=== PATIENT | female | born 1990 | race Caucasian/White ===

== ENCOUNTER 2016-11-23 15:22 | Emergency (ER) | payer OTHER ==
[~2016-11-23] VITALS: Ht 162.6 cm; Wt 77.5 kg
[~2016-11-23 15:22] MED LIST: ACET500C5 PO; BACTDS PO; CEPH-443 PO; CHLO4TAB PO; IBUP-1542 PO; NPH10OT RIGHT EAR
[2016-11-23 16:24] VITALS: Ht 162.6 cm; Wt 77.5 kg
[2016-11-23] MEDS ORDERED: HYDROCODONE/APAP (5/325) TAB PO ONE (19:00)
--- NOTE | 2016-11-23 20:45 | ERD ---
ER Documentation Chief Complaint Date/Time DATE: 11/23/16 TIME: 20:40 Chief Complaint ANDRES BILAT EAR PAIN HPI Patient complains of about 3 months of headaches. The headache is in the right occipital area in the frontal area. 2 months ago she has been seen for similar situation and was told that she was hyperventilating and there was due to stress. Her ears feel like they are underwater or full of air. Saw her a few weeks ago and gave her medication which has not helped. She denies weakness. She says the symptoms started after she came back from [place] approximately 2 months ago. She is 3 months she takes Tylenol as needed no allergies. Been seen here a couple times for similar symptoms the past few months. ROS All systems reviewed and are negative except as per history of present illness. Medications Home Meds Active Scripts Chlorpheniramine Maleate* (Chlor-Trimeton*) 4 Mg Tablet, 4 MG PO Q6, #6 TAB NOT TO EXCEED 24 MG /24 HRS Prov:ALLI DUMONT DO 11/14/16 Cephalexin* (Keflex*) 500 Mg Capsule, 500 MG PO QID for 7 Days, CAP Prov:GURDEEP CANALESC 11/04/16 Cephalexin* (Keflex*) 500 Mg Capsule, 500 MG PO QID for 7 Days, CAP Prov:BAYRON CORTES-C 10/08/16 Acetaminophen* (Tylophen*) 500 Mg Capsule, 2 CAP PO Q6H Y for PAIN AND OR ELEVATED TEMP, #20 CAP Prov:JOHANNA PRICE-C 09/30/16 Neomycin/Polymyxin/Hydrocort* (Cortisporin* Otic) 10 Ml Susp, 4 DROP RIGHT EAR QID for 7 Days, EA Prov:HEMA SERNAC 07/04/16 Ibuprofen* (Motrin*) 600 Mg Tab, 600 MG PO Q6H Y for PAIN AND OR ELEVATED TEMP, #30 TAB Prov:JONI MENDOZA NP 03/15/16 Cephalexin* (Keflex*) 500 Mg Capsule, 500 MG PO QID for 10 Days, CAP Prov:JONI MENDOZA NP 03/15/16 Sulfamethoxazole-Trimethoprim* (Bactrim* DS) 800-160 Mg Tab, 1 TAB PO BID for 10 Days, TAB Prov:JONI MENDOZA GUILLAUME TAric REMY 03/15/16 Allergies Allergies: Coded Allergies: No Known Allergy (Unverified , 03/15/16) PMhx/Soc History of Surgery: No Anesthesia Reaction: No Hx Neurological Disorder: No Hx Respiratory Disorders: No Hx Cardiac Disorders: No Hx Psychiatric Problems: No Hx Miscellaneous Medical Probl: No Hx Alcohol Use: No Hx Substance Use: No Hx Tobacco Use: No Physical Exam Vitals Vital Signs Date Time Temp Pulse Resp B/P Pulse Ox O2 Delivery O2 Flow Rate FiO2 11/23/16 16:24 99.5 94 18 119/72 100 Physical Exam Const: [Alert oriented 4, well-nourished well-developed nontoxic- appearing no apparent distress, interacts appropriately] Head: [Normocephalic/atraumatic, no scalp lesions] Eyes: [Normal Conjunctiva, PERRLA, EOMI no conjunctival injection no conjunctival discharge] ENT: [Normal External Ears, Nose and Mouth, no tonsillar exudates no tonsillar erythema no tonsillar edema oropharynx no erythema. bilateral ear canals are patent, bilateral tympanic membranes nonerythematous.] Neck: [Full range of motion. No meningismus. No cervical lymphadenopathy] Resp: [Clear to auscultation bilaterally, no wheezes rhonchi or rales, breathing normally, no tachypnea no nasal flaring no grunting no accessory muscle use no retractions] Cardio: [Regular rate and rhythm, no murmurs] Abd: [Soft, non tender, non distended. Normal bowel sounds, no rebound rigidity or guarding. Normoactive bowel sounds no flank tenderness, negative McBurney's negative Holland sign.] Skin: [No petechiae or rashes, no hives no urticaria no abscess no laceration no new warmth] Back: [No midline or flank tenderness, full range of motion without pain ] Ext: [No cyanosis, clubbing or edema] Neuro: M/S: Alert and oriented 4. Face: EOMI, face and pharynx with normal sensation and function Motor: Normal strength throughout, muscle strength is 5 out of 5 bilateral upper extremity and bilateral lower extremity Sensation: Normal sensation throughout Speech: Normal Cerebel: Normal coordination Normal gait DTR: 2+ and symmetric upper/lower extremities Psych: She appears very anxious she is crying. Results 24 hrs Current Medications Medications (Trade) Dose Ordered Sig/Prabhjot Route PRN Reason Start Time Stop Time Status Last Admin Dose Admin Acetaminophen/ Hydrocodone Bitart (Cypress (5/325)) 1 tab ONCE ONCE PO 11/23/16 19:00 11/23/16 19:01 DC 11/23/16 18:58 Procedures/MDM We gave her 1 dose of Cypress for her headache. I ordered a CAT scan of the head however patient do not want to the CAT scan because she was worried about the radiation which I think is fine. She has an appointment to see her doctor tomorrow and they can request an MRI at that point. This is most likely panic attacks and anxiety disorder she seems very anxious and stressed today and she has headache and unusual symptoms of the ear. She is very worried about a stroke because her friends told her she may have a stroke however she has no acute symptoms of stroke she has no weakness she has no symptoms of TIA. Also West Nile virus was considered however there is would be no intervention at this point his vital signs are stable and she does not have any meningismus or signs of encephalitis or meningitis. She has no neurological deficits I feel she is stable for discharge. I recommend relaxation therapy and she will see her primary doctor tomorrow who can do further evaluations and/or MRI of the head if needed. Differential includes intracranial hemorrhage intracranial mass or less likely CVA or stroke or meningitis or encephalitis and more likely stress headache. Also considered migraine headache cardiovascular headache or cluster headache or tension headache. ED precautions discussed Departure Diagnosis: Primary Impression: Headache Headache type: tension-type Headache chronicity pattern: acute headache Intractability: not intractable Qualified Code: G44.209 - Acute non intractable tension-type headache Additional Impression: Anxiety Condition: Stable Patient Instructions: Your Body's Response to Anxiety, Self-Care for Headaches , Anxiety Reaction ALLI DUMONT DO Nov 23, 2016 20:44
[2016-11-23 21:00] VITALS: BP 122/69; PULSE 77; RESP 18; TEMP 99.5
[2016-11-24] MEDS ORDERED: NITR-58 PO (11:51)
== END 2016-11-23 21:00 | disposition home or self-care (01) ==
LOC: FTE 15:22
DX: G44.209 Tension-type headache, unspecified, not intractable (principal); F41.9 Anxiety disorder, unspecified
CPT/HCPCS: Z7502; Z7610; 99283

== ENCOUNTER 2016-11-24 10:02 | Emergency (ER) | payer OTHER ==
[~2016-11-24] VITALS: Ht 162.6 cm; Wt 77.0 kg
[2016-11-24 10:15] VITALS: Ht 162.6 cm; Wt 77.0 kg
--- NOTE | 2016-11-24 11:32 | RADRPT ---
PROCEDURE: CT Brain without contrast. CLINICAL INDICATION: Headaches TECHNIQUE: A CT of the brain was performed on a multidetector CT scanner utilizing axial sections from the skull base through the vertex without contrast. Images were reviewed on a high-resolution enosiX workstation. Exam CTDI = 44.88 mGy and the DLP = 630.20 mGy-cm. One or more of the following dose reduction techniques were used: Automated exposure control Adjustment of the mA and/or kV according to patient size. Use of iterative reconstruction technique. COMPARISON: None available FINDINGS: There is no evidence of intracranial hemorrhage, mass effect or midline shift. No abnormal intra-ax ial or extra-axial fluid collections are seen. The density of the brain is normal and the miller/whit e matter differentiation is well preserved. The osseous structures and visualized paranasal sinuse s are unremarkable. IMPRESSION: 1. No intracranial hemorrhage, mass effect or midline shift. RPTAT: BB .Payam Walton MD, MD Date Time Electronically viewed and signed by .Payam Walton MD, on 11/24/2016 11:32 .O/
[2016-11-24 11:33] LABS: BASOPHILS % 0.3 % (0.0-2.0); EOSINOPHILS % 0.4 % (0.0-7.0); HEMATOCRIT 39.6 % (37.0-47.0); HEMOGLOBIN 13.4 g/dl (12.0-16.0); LYMPHOCYTES % 19.1 % (15.0-51.0); MEAN CORPUSCULAR HEMOGLOBIN 30.1 pg (29.0-33.0); MEAN CORPUSCULAR VOLUME 88.7 fl (82.0-101.0); MEAN PLATELET VOLUME 8.4 fl (7.4-10.4); MONOCYTE # 0.5 10^3/ul (0.3-0.9); MONOCYTES % 4.4 % (0.0-11.0); NEUTROPHIL # 7.9 10^3/ul (1.6-7.5); NEUTROPHILS % 75.8 % (39.0-77.0); PLATELET COUNT 224 10^3/UL (140-440); RED BLOOD COUNT 4.46 10^6/ul (4.20-5.40); RED CELL DISTRIBUTION WIDTH 13.6 % (11.5-14.5); UNCORRECTED WBC 10.5 10^3/ul (4.8-10.8); WHITE BLOOD COUNT 10.5 10^3/ul (4.8-10.8)
[2016-11-24 11:34] LABS: ALBUMIN 4.1 g/dl (3.3-4.9); CONDITION 1
[2016-11-24 11:35] LABS: POTASSIUM 4.1 mmol/L (3.5-5.1)
[2016-11-24 11:37] LABS: ADD UMIC YES; URINE BILIRUBIN (Dip) NEGATIVE (NEGATIVE); URINE BLOOD (Dip) TRACE (NEGATIVE); URINE COLOR LT. YELLOW (YELLOW); URINE GLUCOSE (Dip) NEGATIVE (NEGATIVE); URINE KETONES (Dip) NEGATIVE (NEGATIVE); URINE LEUKOCYTE ESTERASE (Dip) 3+ (NEGATIVE); URINE NITRITE (Dip) NEGATIVE (NEGATIVE); URINE TOTAL PROTEIN (Dip) NEGATIVE (NEGATIVE); URINE UROBILINOGEN (Dip) 0.2 E.U./dL (0.1-1.0)
[2016-11-24 11:37] LABS: ALBUMIN/GLOBULIN RATIO 1.24; BILIRUBIN,INDIRECT 0.2 mg/dl (0-1.1); BILIRUBIN,TOTAL 0.2 mg/dl (0.2-1.3); CREATININE 0.46 mg/dl (0.44-1.00); TOTAL PROTEIN 7.4 g/dl (6.1-8.1)
[2016-11-24 11:38] LABS: CALCIUM 9.7 mg/dl (8.4-10.2)
--- NOTE | 2016-11-24 11:45 | RADRPT ---
PROCEDURE: US OB. CLINICAL INDICATION: Size and dates , headache TECHNIQUE: Multiple sonographic images of the pelvis and gravid uterus were obtained. The images were reviewed on a PACS workstation. COMPARISON: 10/07/2016 FINDINGS: The cervix is closed with a length of 4.2 cm. There is a single viable intrauterine gestation. Cardiac activity is present with 156 beats per min consuelo. There is a variable presentation. The placenta is anterior. There is no evidence for an abruption or placenta previa. Measurements were made in order to determine age. The results are as follows: BPD =2.6 cm HC =9.2 cm AC =7.8 cm FL =1.4 cm Estimated gestational age of approximately 14 weeks and 2 days based on ultrasound measurements. Clinical age: 14 weeks and 1 day. The estimated date of delivery is 05/23/17, based on ultrasound measurements. The EFW = 91 g, 34.6%, based on LMP age. RPTAT: AA IMPRESSION: Single viable intrauterine gestation of approximately 14 weeks and 2 days based on ultrasound measu rements. .Jersey Roberts MD, MD Date Time Electronically viewed and signed by .Jersey Roberts MD, MD on 11/24/2016 11:45 .S/
[2016-11-24 11:46] LABS: BACTERIA,URINE FEW; SQUAMOUS EPITHELIAL CELL,UR MODERATE; URINE RBCS 0-2 /HPF (0)
[2016-11-24] MEDS ORDERED: NITR-58 PO (11:51)
--- NOTE | 2016-11-24 12:41 | ERD ---
ER Documentation Chief Complaint Date/Time DATE: 11/24/16 TIME: 12:36 Chief Complaint ANDRES X 2 months, pt was here last night for same complaint, 3 months HPI 26-year-old female is 0, 14 weeks comes in with a headache for the past 2 months. She comes back to the emergency room due to headache, she describes as a pressure type sensation and started after she returned from [place] on a flight. She has been told that he may have been a eustachian tube dysfunction, has been taking Benadryl as well as other allergy medicine without any symptomatic relief. She also has tried taking Tylenol. Headache is described as a pressure type sensation that goes from her neck to the occiput of the head, intermittent, and she also reports associated numbness to both of her hands. She was told yesterday that we may do a CT head if she is worried, she states that she is worried about having a brain tumor or bleeding and is requesting a CT scan. She was actually told to follow-up with her primary care doctor today to get an MRI however she did not follow-up. She denies any fevers , chills or neck stiffness. Patient denies pelvic pain or vaginal bleeding. ROS All systems reviewed and are negative except as per history of present illness. Medications Home Meds Active Scripts Nitrofurantoin Monohyd Macrocr* (Macrobid*) 100 Mg Capsr, 100 MG PO BID for 7 Days, CAP Prov:TARAH GRUBBSC 11/24/16 Chlorpheniramine Maleate* (Chlor-Trimeton*) 4 Mg Tablet, 4 MG PO Q6, #6 TAB NOT TO EXCEED 24 MG /24 HRS Prov:ALLI DUMONT DO 11/14/16 Cephalexin* (Keflex*) 500 Mg Capsule, 500 MG PO QID for 7 Days, CAP Prov:GURDEEP CANALESC 11/04/16 Cephalexin* (Keflex*) 500 Mg Capsule, 500 MG PO QID for 7 Days, CAP Prov:BAYRON CORTES-C 10/08/16 Acetaminophen* (Tylophen*) 500 Mg Capsule, 2 CAP PO Q6H Y for PAIN AND OR ELEVATED TEMP, #20 CAP Prov:JOHANNA PRICEC 09/30/16 Neomycin/Polymyxin/Hydrocort* (Cortisporin* Otic) 10 Ml Susp, 4 DROP RIGHT EAR QID for 7 Days, EA Prov:HEMA SERNA PA-C 07/04/16 Ibuprofen* (Motrin*) 600 Mg Tab, 600 MG PO Q6H Y for PAIN AND OR ELEVATED TEMP, #30 TAB Prov:JONI MENDOZA COMPUTER PERIPHERAL EQUIPMENT OPERATOR 03/15/16 Cephalexin* (Keflex*) 500 Mg Capsule, 500 MG PO QID for 10 Days, CAP Prov:JONI MENDOZA COMPUTER PERIPHERAL EQUIPMENT OPERATOR 03/15/16 Sulfamethoxazole-Trimethoprim* (Bactrim* DS) 800-160 Mg Tab, 1 TAB PO BID for 10 Days, TAB Prov:JONI MENDOZA COMPUTER PERIPHERAL EQUIPMENT OPERATOR 03/15/16 Allergies Allergies: Coded Allergies: No Known Allergy (Unverified , 11/24/16) PMhx/Soc Medical and Surgical Hx: pt denies Medical Hx, pt denies Surgical Hx History of Surgery: No Anesthesia Reaction: No Hx Neurological Disorder: No Hx Respiratory Disorders: No Hx Cardiac Disorders: No Hx Psychiatric Problems: No Hx Miscellaneous Medical Probl: No Hx Alcohol Use: No Hx Substance Use: No Hx Tobacco Use: No Smoking Status: Never smoker Physical Exam Vitals Vital Signs Date Time Temp Pulse Resp B/P Pulse Ox O2 Delivery O2 Flow Rate FiO2 11/24/16 10:15 98.3 104 18 120/67 97 Physical Exam General: Well-developed, well-nourished. The patient appears in no acute distress. HEENT: Head is normocephalic, atraumatic. No scleral icterus. Pupils are equal , round, and reactive. Oral mucous membranes are moist. No pharyngeal erythema. Neck: Supple. Nontender. Lungs: Clear to auscultation. Normal air movement. Heart: Regular rate and rhythm. S1 and S2 are normal. No murmurs, gallops, or rubs. Abdomen: Soft, nontender, nondistended. Bowel sounds are normoactive. Extremities: No clubbing or cyanosis. Normal pulses. Moving extremities x 4. No weakness. Neuro: M/S: Alert and oriented Face: EOMI, CN II-XII grossly intact Motor: Normal strength throughout Sensation: Normal sensation throughout Speech: Normal Cerebel: Normal coordination Normal gait Normal finger to nose DTR: 2+ and symmetric upper/lower extremities Skin: Normal turgor. No rash or lesions. Result Diagram: 11/24/16 1115 11/24/16 1115 Results 24 hrs Laboratory Tests Test 11/24/16 11:15 11/24/16 11:20 Alanine Aminotransferase (ALT/SGPT) 23IU/L Albumin 4.1g/dl Albumin/Globulin Ratio 1.24 Alkaline Phosphatase 62IU/L Anion Gap 15 Aspartate Amino Transf (AST/SGOT) 14IU/L Basophils # 0.010^3/ul Basophils % 0.3% Blood Urea Nitrogen 8mg/dl Calcium Level 9.7mg/dl Carbon Dioxide Level 24mmol/L Chloride Level 102mmol/L Creatinine 0.46mg/dl Direct Bilirubin 0.00mg/dl Eosinophils # 0.010^3/ul Eosinophils % 0.4% Globulin 3.30g/dl Glucose Level 90mg/dl Hematocrit 39.6% Hemoglobin 13.4g/dl Indirect Bilirubin 0.2mg/dl Lymphocytes # 2.010^3/ul Lymphocytes % 19.1% Mean Corpuscular Hemoglobin 30.1pg Mean Corpuscular Hemoglobin Concent 34.0g/dl Mean Corpuscular Volume 88.7fl Mean Platelet Volume 8.4fl Monocytes # 0.510^3/ul Monocytes % 4.4% Neutrophils # 7.910^3/ul Neutrophils % 75.8% Nucleated Red Blood Cells # 0.010^3/ul Nucleated Red Blood Cells % 0.0/100WBC Platelet Count 67322^3/UL Potassium Level 4.1mmol/L Red Blood Count 4.4610^6/ul Red Cell Distribution Width 13.6% Sodium Level 137mmol/L Total Bilirubin 0.2mg/dl Total Protein 7.4g/dl White Blood Count 10.510^3/ul Urine Bacteria FEW Urine Bilirubin NEGATIVE Urine Clarity CLEAR Urine Color LT. YELLOW Urine Glucose NEGATIVE% Urine Hemoglobin TRACE Urine Ketones NEGATIVE Urine Leukocyte Esterase 3+ Urine Microscopic RBC 0-2/HPF Urine Microscopic WBC 5-10/HPF Urine Nitrite NEGATIVE Urine Specific [place] 1.015 Urine Squamous Epithelial Cells MODERATE Urine Total Protein NEGATIVE Urine Urobilinogen 0.2 E.U./dL Urine pH 6.5 PROCEDURE: US OB. CLINICAL INDICATION: Size and dates , headache TECHNIQUE: Multiple sonographic images of the pelvis and gravid uterus were obtained. The images were reviewed on a PACS workstation. COMPARISON: 10/07/2016 FINDINGS: The cervix is closed with a length of 4.2 cm. There is a single viable intrauterine gestation. Cardiac activity is present with 156 beats per minute. There is a variable presentation. The placenta is anterior. There is no evidence for an abruption or placenta previa. Measurements were made in order to determine age. The results are as follows: BPD = 2.6 cm HC = 9.2 cm AC = 7.8 cm FL = 1.4 cm Estimated gestational age of approximately 14 weeks and 2 days based on ultrasound measurements. Clinical age: 14 weeks and 1 day. The estimated date of delivery is 05/23/17, based on ultrasound measurements. The EFW = 91 g, 34.6%, based on LMP age. RPTAT: AA IMPRESSION: Single viable intrauterine gestation of approximately 14 weeks and 2 days based on ultrasound measurements. .Jersey Roberts MD, MD Date Time Electronically viewed and signed by .Jersey Roberts MD, MD on 11/24/2016 11: 45 .S/ PROCEDURE: CT Brain without contrast. CLINICAL INDICATION: Headaches TECHNIQUE: A CT of the brain was performed on a multidetector CT scanner utilizing axial sections from the skull base through the vertex without contrast. Images were reviewed on a high-resolution PACS workstation. Exam CTDI = 44.88 mGy and the DLP = 630.20 mGy-cm. One or more of the following dose reduction techniques were used: Automated exposure control Adjustment of the mA and/or kV according to patient size. Use of iterative reconstruction technique. COMPARISON: None available FINDINGS: There is no evidence of intracranial hemorrhage, mass effect or midline shift. No abnormal intra-axial or extra-axial fluid collections are seen. The density of the brain is normal and the miller/white matter differentiation is well preserved. The osseous structures and visualized paranasal sinuses are unremarkable. IMPRESSION: 1. No intracranial hemorrhage, mass effect or midline shift. RPTAT: BB .Payam Walton MD, MD Date Time Electronically viewed and signed by .Payam Walton MD, on 11/24/2016 11:32 Procedures/MDM ED course: I reviewed patient's previous EMR, including yesterday's visit. She actually was offered a CT scan, which was ordered however it she decided to opt out. She states that she was not able to follow-up with her primary care doctor, she appears extremely anxious and was concerned about having a mass or bleed, did explain the radiation risk even though we would be shielding her in the emergency room, she currently is demanding a CT scan of the head. She understands the risks and benefits of this examination. MDM: 26-year-old female who is comes in with headache, likely tension headache versus anxiety. Her workup included labs, urine as well as CT head and ultrasound of the pelvis. CT head was unremarkable, there is no bleed or mass, ultrasound shows a single live intrauterine at 14 weeks, normal heart tones noted. Urinalysis shows 3+ leukocyte esterase significant for a urinary tract infection, that may also explain reasoning for her headache at this time. CMP was also done, unremarkable. There is no elevated white blood cell count, I do not see signs of other infectious origin for the headache , including meningitis, encephalitis. I have explained the results with the patient, if she continues to have a headache that she may follow-up with her primary care doctor off to even see a neurologist outpatient. Departure Diagnosis: Primary Impression: Headache Additional Impression: Urinary tract infection Condition: Good Patient Instructions: Understanding Urinary Tract Infections (UTIs), Tension Headaches Additional Instructions: Patient was advised to follow-up with their OB in 3-4 days for a recheck examination. If they were to develop any worsening symptoms sooner, including heavy vaginal bleeding or pelvic pain, they are to return to the ER for further evaluation. TARAH GRUBBS PA-C Nov 24, 2016 12:40
== END 2016-11-24 12:05 | disposition home or self-care (01) ==
LOC: FTE 10:02
DX: O99.89 Other specified diseases and conditions complicating pregnancy, childbirth and the puerperium (principal); O23.42 Unspecified infection of urinary tract in pregnancy, second trimester; R51 Headache; Z3A.14 14 weeks gestation of pregnancy
CPT/HCPCS: 70450; 76805; 80053; 81001; 84702; 85025; Z7502; 81003

== ENCOUNTER 2017-02-01 04:10 | Outpatient (CLI) | payer OTHER ==
[~2017-02-01] VITALS: Ht 162.6 cm; Wt 84.7 kg
[~2017-02-01 04:10] MED LIST changes: +NITR-58 PO
[2017-02-01 04:43] VITALS: Ht 162.6 cm; Wt 84.7 kg
[2017-02-01 04:44] VITALS: BP 119/75; PULSE 94; RESP 18
[2017-02-01] MEDS ORDERED: PREN1TAB62 PO (04:46)
--- NOTE | 2017-02-01 05:48 | RADRPT ---
PROCEDURE: US Abdomen (right upper quadrant). CLINICAL INDICATION: Abdominal pain. TECHNIQUE: Multiple real-time longitudinal and transverse images of the right upper quadrant of th e abdomen were acquired utilizing a curved array transducer. Images were reviewed on a high-resoluti on PACS workstation. COMPARISON: None FINDINGS: The liver is normal in size and demonstrates increased echogenicity. No focal intrahepatic mass is identified. The gallbladder is normal in appearance. There is no pericholecystic fluid or gallblad myrna wall thickening. No intra or extrahepatic biliary dilatation is seen. The common bile duct diane ures 3.1 mm in maximal dimension. The portal and hepatic veins are patent demonstrating normal direc tional flow. The visualized portions of the pancreas are unremarkable with obscuration of the tail o f the pancreas. No free fluid is identified. The right kidney measures 10.5 cm in length. There is normal echogenicity within the right kidney. There is no perinephric fluid collection. No hydronephrosis, mass, or calculus is seen. IMPRESSION: Hepatic steatosis. Otherwise, unremarkable right upper quadrant abdominal ultrasound. RPTAT: HH .Alisia Godinez MD, Date Time Electronically viewed and signed by .Alisia Godinez MD, on 02/01/2017 05:47 .G/
[2017-02-01 06:13] LABS: ADD UMIC YES; URINE BILIRUBIN (Dip) NEGATIVE (NEGATIVE); URINE BLOOD (Dip) NEGATIVE (NEGATIVE); URINE COLOR LT. YELLOW (YELLOW); URINE GLUCOSE (Dip) NEGATIVE (NEGATIVE); URINE KETONES (Dip) NEGATIVE (NEGATIVE); URINE LEUKOCYTE ESTERASE (Dip) 3+ (NEGATIVE); URINE NITRITE (Dip) NEGATIVE (NEGATIVE); URINE TOTAL PROTEIN (Dip) NEGATIVE (NEGATIVE); URINE UROBILINOGEN (Dip) 0.2 E.U./dL (0.1-1.0)
[2017-02-01 06:24] LABS: BACTERIA,URINE FEW; SQUAMOUS EPITHELIAL CELL,UR FEW; URINE RBCS 0-2 /HPF (0)
--- NOTE | 2017-02-01 06:52 | PN ---
Date/Time of Note Date/Time of Note DATE: 02/01/17 TIME: 06:44 OB Subjective Subjective Subjective 26 year-old G1 with SIUP at 23 3/7 weeks presents with a chief complaint of abdominal pain.. She has been receiving her care with Dr. Campbell. She states good movement. She denies nausea, vomiting, shortness of breath, chest pain, and abdominal pain between contractions, headache, visual changes, vaginal bleeding or LOF. OB Objective Objective Objective General: Patient appears well, alert and oriented, NAD, appropriate mood and affect ABD: gravid, soft, minimal tenderness on RUQ, neg rebound. Back: No CVA tenderness (B/L) LE: No clubbing, cyanosis, edema, thigh or calf tenderness bilaterally Abdominal us performed: unremarkable except hepatic steatoses OB Assessment/Plan Other plan: 26 year-old G1 with SIUP at 23 3/7 weeks with abdominal pain and hepatic steatosis. Currently is doing well, states pain is resolved FHT: 135 bpm , moderate variability with acceleration, no deceleration-category I Contractions: Noneat - FHR: No sign of metabolic acidosis- Category I - Continuous EFM, toco - Contractions: None. - Symptoms and sign of labor, preeclampsia, kick count discussed with patient, she voiced understanding. All of her questions answered. - Patient was discharged home in stable condition with the appropriate discharge instructions provided. I would like patient to have close follow-up with her primary physician or outpatient clinic today to discuss the abdominal us result. Strongly recommend return to the ER for worsening symptoms or any other urgent concerns. BRIGITTE MALCOLM Feb 01, 2017 06:52
--- NOTE | 2017-02-01 06:56 | TRIAGE ---
OB Triage Datetime Report Generated by CPN: 02/01/2017 06:56 Datetime: 02/01/2017 06:35 EGA: 23.3 Datetime: 02/01/2017 06:00 Labor Evaluation Frequency: 0 Monitor Mode: External Datetime: 02/01/2017 05:08 Stage of : OB Triage Datetime: 02/01/2017 05:00 Labor Evaluation Frequency: 0 Monitor Mode: External Heart Rate FHR Baseline Rate: 155 FHR Baseline Changes: No Baseline Change Variability: Moderate 6-25 bpm Accelerations: 10X10 Decelerations: None Category: Category II Datetime: 02/01/2017 04:38 Stage of : OB Triage Assessment Type: Triage Time of Arrival: 02/01/2017 04:05 Arrived By: Wheelchair Arrived From: Home Chief Complaint: ABDOMINAL PAIN Movement: Present Contractions: Denies/Absent Rupture of Membranes: Denies Vaginal Bleeding: None Vaginal Discharge: Denies Recent Sexual Intercouse: Denies Abdominal Trauma: Not Applicable Patient Complaints: None Time Provider Notified: 02/01/2017 05:08 Provider Notified: HADADIAN (Annotations: Data stored by N on behalf of user) Initial Plan: CALL WILDA BLACKBURN Maternal Assessment Level of Consciousness: Fully Conscious DTR's/Clonus: DTRs 2+; No Clonus Headache: Denies Blurred Vision: No Respiratory Effort: Unlabored; Regular Rhythm; Equal Expansion Breath Sounds, Left: Clear and Equal Breath Sounds, Right: Clear and Equal Nausea/Vomiting: Denies RUQ Epigastric Pain: Denies Lower Extremities Edema: None Degree: None Upper Extremities Edema: None Degree: None Facial Edema: None Temperature Route: Oral Fall Risk Assessment History of Falling: (0) No Secondary Diagnosis: (0) No Ambulatory Aid: (0) Bedrest/Nurse Assist IV Therapy: (0) No Gait: (0) Normal/Bedrest/Immobile Mental Status: (0) Oriented to Own Ability Fall Score: 0 Fall Risk Score Definition: No Risk: No action required Monitor Mode: External Monitor Mode: External US Pain Assessment Pain Scale: 5 Pain Presence: Intermittent Pain Type: Cramping
== END 2017-02-01 06:33 | disposition home or self-care (01) ==
LOC: OBT 04:10 → L-D 04:20 → OBT 06:33
PROVIDERS: ATTEND Obstetrics & Gynecology
DX: O60.02 Preterm labor without delivery, second trimester (principal); O14.92 Unspecified pre-eclampsia, second trimester; O26.892 Other specified pregnancy related conditions, second trimester; R10.9 Unspecified abdominal pain; Z3A.23 23 weeks gestation of pregnancy
CPT/HCPCS: 76705; 81001; 87086; Z7500; 81003; G0463

== ENCOUNTER 2017-02-02 12:37 | Outpatient (CLI) | payer OTHER ==
[~2017-02-02] VITALS: Ht 162.6 cm; Wt 84.0 kg
[~2017-02-02 12:37] MED LIST changes: +PREN1TAB62 PO
[2017-02-02 12:52] VITALS: BP 119/70; PULSE 100; RESP 19; Ht 162.6 cm; Wt 84.0 kg
--- NOTE | 2017-02-02 13:13 | TRIAGE ---
OB Triage Datetime Report Generated by CPN: 02/02/2017 13:12 Datetime: 02/02/2017 12:57 Level of Consciousness: Fully Conscious DTR's/Clonus: DTRs 1+ Headache: Denies Blurred Vision: No Respiratory Effort: Unlabored Breath Sounds, Left: Clear and Equal Breath Sounds, Right: Clear and Equal Nausea/Vomiting: Denies RUQ Epigastric Pain: Denies Facial Edema: None Frequency: NONE Monitor Mode: External Resting Tone [place]: Relaxed FHR Baseline Rate: 150 Monitor Mode: External US Variability: Moderate 6-25 bpm Accelerations: 10X10 Decelerations: None Category: Category I Comments: REACTIVE ACCORDING TO AGE Pain Scale: 0 Pain Presence: None/Denies Pain Type: N/A Pain Goal: 3 Membrane Status: Intact Datetime: 02/02/2017 12:40 Time of Arrival: 02/02/2017 12:40 EGA: 23.4 Arrived By: Wheelchair Arrived From: Home Chief Complaint: PT CAME IN STATING THAT SHE WAS HAVING RT SIDE PAIN SINCE YESTERDAY AND IT GOT WO RSED WHEN SHE EAT THIS AM. SHE STATES NOT HAVING PAIN AT THIS TIME ONLY WHEN SHE AET. Movement: Present Contractions: Denies/Absent Rupture of Membranes: Denies Vaginal Bleeding: None Vaginal Discharge: Denies Recent Sexual Intercouse: Denies Abdominal Trauma: Not Applicable Patient Complaints: Other Additional Patient Complaints: NONE Time Provider Notified: 02/02/2017 13:00 Provider Notified: CHRISTIANO Initial Plan: MONITOR
== END 2017-02-02 13:02 | disposition home or self-care (01) ==
LOC: OBT 12:37 → L-D 12:38 → OBT 13:02
PROVIDERS: ATTEND Obstetrics & Gynecology
DX: O47.02 False labor before 37 completed weeks of gestation, second trimester (principal); Z3A.23 23 weeks gestation of pregnancy
CPT/HCPCS: G0463

== ENCOUNTER 2017-03-23 18:43 | Emergency (ER) | payer OTHER ==
[~2017-03-23] VITALS: Ht 160 cm; Wt 89.0 kg
[~2017-03-23 18:43] MED LIST changes: -ACET500C5 PO; -BACTDS PO; -CEPH-443 PO; -CHLO4TAB PO; -IBUP-1542 PO; -NITR-58 PO; -NPH10OT RIGHT EAR
[2017-03-23 18:57] VITALS: Ht 160 cm; Wt 89.0 kg
[2017-03-23 20:26] LABS: URINE BLOOD (Dip) POC Trace-intact (NEGATIVE)
--- NOTE | 2017-03-23 20:56 | ERD ---
ER Documentation Chief Complaint Date/Time DATE: 03/23/17 TIME: 20:53 Chief Complaint chest pain on and off x 3 days, 30 weeks HPI 26-year-old female , LMP 08/21/2016 with a EDC of May 24, 2017 ambulatory to the ED with multiple complaints. Since becoming in August 2016 she has mild, intermittent, vague, non-radiating lower substernal chest pains which come and go several times per week but sometimes daily. Denies shortness of breath, nausea, vomiting or diaphoresis. Palpitations but no dizziness or syncope. Denies leg pain. No cough or hemoptysis. Symptoms are provoked by anxiety. Episode today lasted about 2 hours and now asymptomatic. Also c/o mild , intermittent, non-radiating crampy lower abdominal pains since yesterday. Noticed a whitish, non-foul smelling vaginal discharge but no bleeding. Feels that she is "leaking fluid". No headache, visual changes, focal weakness or numbness. No fevers or chills. ROS All systems reviewed and are negative except as per history of present illness. Medications Home Meds Discontinued Reported Medications Vit-Iron Fumarate-FA ( Vitamin Tablet) 1 Each Tablet, 1 TAB PO DAILY, TAB 02/01/17 Allergies Allergies: Coded Allergies: No Known Allergy (Unverified , 03/23/17) PMhx/Soc Reviewed in chart, as per HPI. Medical and Surgical Hx: pt denies Medical Hx, pt denies Surgical Hx History of Surgery: No Anesthesia Reaction: No Hx Neurological Disorder: No Hx Respiratory Disorders: No Hx Cardiac Disorders: No Hx Psychiatric Problems: Yes (Anxiety) Hx Miscellaneous Medical Probl: Yes (UTI) Hx Alcohol Use: No Hx Substance Use: No Hx Tobacco Use: No Smoking Status: Never smoker FmHx No hypercoagulability, cancer or CAD. Physical Exam Vitals Vital Signs Date Time Temp Pulse Resp B/P Pulse Ox O2 Delivery O2 Flow Rate FiO2 03/23/17 21:16 99 18 131/77 99 Room Air 03/23/17 18:57 97.8 126 20 145/94 99 Physical Exam Const: Alert, anxious, moderate distress Head: Atraumatic Eyes: Normal Conjunctiva ENT: Normal External Ears, Nose and Mouth. Neck: Full range of motion. Nontender. No meningismus. Resp: BS are equal and clear to auscultation bilaterally Cardio: Regular rate and rhythm, no murmurs. No chest wall tenderness. Abd: Soft, gravid, non tender, non distended. Normal bowel sounds. No rebound or guarding. : Deferred Skin: No petechiae or rashes Back: No midline or flank tenderness Ext: No cyanosis, or edema. No calf swelling, erythema or tenderness. Neur: Awake and alert. No focal deficit observed. Psych: Anxious mood. Denies depression. No hallucinations or delusions. Results 24 hrs Laboratory Tests Test 03/23/17 20:26 Bedside Urine pH (LAB) 7.0 Bedside Urine Protein (LAB) Negative Bedside Urine Glucose (UA) Negative Bedside Urine Ketones (LAB) Negative Bedside Urine Blood Trace-intact Bedside Urine Nitrite (LAB) Negative Bedside Urine Leukocyte Esterase (L 3+ EKG: Sinus tachycardia. Ventricular rate 116. Normal VA and QRS. RSR prime in V1 suggestive of right ventricular conduction delay. No acute ST segment elevation or depression. No ectopy. EP interpretation: Borderline ECG. Procedures/MDM DOCUMENTS REVIEWED: ED nurse, prior ED and . 12 visits during this for assorted issues including anxiety and UTI. REEXAMINATION/REEVALUATION: Time: 21:00. Doing well. Vital signs stable. Feels better. No chest pain, palpitations or shortness of breath. MEDICAL DECISION MAKIN-year-old female , LMP 08/21/2016 with a EDC of May 24, 2017 ambulatory to the ED with multiple complaints. Chest pain for over 30 weeks, since becoming likely related to anxiety. A cardiopulmonary etiology including but not limited to ACS, pulmonary embolism, pneumonia, pneumothorax, aortic dissection, cardiac dysrhythmia or pulmonary embolism is extremely unlikely. Abdominal pain of uncertain etiology. Doubt appendicitis. Vaginal discharge and feelings of leaking fluid and ruptured membranes considered. Possible UTI/vaginitis. Dip U/A negative for glucose and protein. No signs or symptoms of eclampsia. Stable for discharge from the ED and will be transported via wheelchair for immediate [employer] evaluation and tocodynamometry. Counseled patient regarding diagnostic workup, diagnosis and need for followup. Understands to return to ED if symptoms recur, worsen or any other concerns. Departure Diagnosis: Primary Impression: Chest pain Chest pain type: unspecified Qualified Code: R07.9 - Chest pain, unspecified type Additional Impressions: 30 weeks gestation of Anxiety Condition: Stable (For [employer] DEVELOPER evaluation) Patient Instructions: Chest Pain, Uncertain Cause MARICHUY KUO MD March 23, 2017 20:55
[2017-03-23 21:16] VITALS: BP 131/77; PULSE 99; RESP 18
== END 2017-03-23 21:17 | disposition home or self-care (01) ==
LOC: E/R 18:43
DX: O99.89 Other specified diseases and conditions complicating pregnancy, childbirth and the puerperium (principal); R07.9 Chest pain, unspecified; F41.9 Anxiety disorder, unspecified; Z3A.30 30 weeks gestation of pregnancy
CPT/HCPCS: 81003; Z7502; 99282

== ENCOUNTER 2017-03-23 21:24 | Inpatient (IN) | payer OTHER ==
[~2017-03-23] VITALS: Ht 162.6 cm; Wt 88.7 kg
[2017-03-23 22:03] VITALS: BP 115/67; PULSE 109; RESP 20; Ht 162.6 cm; Wt 88.7 kg
[2017-03-23 23:13] LABS: ADD SCAN DIFF NO
[2017-03-23 23:18] LABS: BASOPHILS % 0.3 % (0.0-2.0); EOSINOPHILS # 0.1 10^3/ul (0.0-0.5); EOSINOPHILS % 0.4 % (0.0-7.0); HEMATOCRIT 32.8 % (37.0-47.0); HEMOGLOBIN 10.9 g/dl (12.0-16.0); LYMPHOCYTES # 2.3 10^3/ul (0.8-2.9); LYMPHOCYTES % 16.4 % (15.0-51.0); MEAN CORPUSCULAR HEMOGLOBIN 29.1 pg (29.0-33.0); MEAN CORPUSCULAR HGB CONC 33.2 g/dl (32.0-37.0); MEAN CORPUSCULAR VOLUME 87.5 fl (82.0-101.0); MEAN PLATELET VOLUME 10.4 fl (7.4-10.4); MONOCYTE # 0.8 10^3/ul (0.3-0.9); MONOCYTES % 5.7 % (0.0-11.0); NEUTROPHIL # 10.7 10^3/ul (1.6-7.5); NEUTROPHILS % 75.7 % (39.0-77.0); PLATELET COUNT 198 10^3/UL (140-415); RED BLOOD COUNT 3.75 10^6/ul (4.20-5.40); RED CELL DISTRIBUTION WIDTH 13.3 % (11.5-14.5); WHITE BLOOD COUNT 14.1 10^3/ul (4.8-10.8)
[2017-03-23 23:26] LABS: ADD UMIC YES; URINE BILIRUBIN (Dip) NEGATIVE (NEGATIVE); URINE BLOOD (Dip) NEGATIVE (NEGATIVE); URINE COLOR LT. YELLOW (YELLOW); URINE GLUCOSE (Dip) NEGATIVE (NEGATIVE); URINE KETONES (Dip) 15 (NEGATIVE); URINE LEUKOCYTE ESTERASE (Dip) 3+ (NEGATIVE); URINE NITRITE (Dip) NEGATIVE (NEGATIVE); URINE TOTAL PROTEIN (Dip) NEGATIVE (NEGATIVE); URINE UROBILINOGEN (Dip) 0.2 E.U./dL (0.1-1.0)
[2017-03-23] MEDS ORDERED: LACTATED RINGER'S 1,000 ML IV ONE (23:30)
--- NOTE | 2017-03-23 23:30 | RADRPT ---
PROCEDURE: US OB. US OB Estimated Weight CLINICAL INDICATION: Labor TECHNIQUE: Multiple sonographic images of the pelvis were obtained. The images were reviewed on a PACS workstation. COMPARISON: No prior studies are available for comparison. FINDINGS: There is a single viable intrauterine gestation. Cardiac activity is present with 148 beats per min consuelo. There is a vertex presentation. Measurements were made in order to determine age. The results are as follows: BPD =8.3 cm. HC =29.7 cm. AC =28.1 cm. FL =5.7 cm. Estimated gestational age of approximately 32 weeks and 1 day. The estimated date of delivery is 05/17/2017. Estimated delivery date by Last menstrual period 02/2017. The EFW = 1810 grams, 55th percentile. The placenta is anterior, grade II. There is no evidence for an abruption or placenta previa. There is a normal appearing amount of amniotic fluid.. There are no adnexal masses. IMPRESSION: Single viable intrauterine gestation of approximately 32 weeks and 1 day. The estimated date of del nannette is 05/17/2017. RPTAT: HBST . .Matt Bradley MD, Date Time Electronically viewed and signed by .Matt Bradley MD, MD on 03/23/2017 23:30 .T/
--- NOTE | 2017-03-23 23:31 | RADRPT ---
PROCEDURE: OB ultrasound for biophysical profile CLINICAL INDICATION: labor. TECHNIQUE: Multiple sonographic images of the gravid uterus performed. The images were reviewed on a PACS workstation. COMPARISON: None FINDINGS: A single live intrauterine is identified with heart rate of 150 bpm. Fet us is in a cephalic presentation. Placenta is located anterior. Biophysical profile: breathing movement = 2/2 tone = 2/2 motion = 2/2 AIMEE = 2/2 AIMEE = 16.1 cm. Cervix is 4.1 cm in length. IMPRESSION: 1. Single live intrauterine gestation. 2. Biophysical profile = 8/8. 3. AIMEE = 16.1 cm. RPTAT: HMVK .Fco Payne MD, Date Time Electronically viewed and signed by .Fco Payne MD, MD on 03/23/2017 23:31 .K/
[2017-03-23 23:36] LABS: INR 1.03; PARTIAL THROMBOPLASTIN TIME 27.5 Sec (25.0-35.0); PROTIME 13.5 Sec (12.2-14.2); PT RATIO 1.1
--- NOTE | 2017-03-23 23:41 | QN ---
Documentation Comment 26-year-old with IUP at 31 weeks and 1 day presented with complaint of yellowish greenish vaginal discharge for the last couple days. She is concerned that she might have leaking of amniotic fluid. She also reported that have chest pain in the left upper part of the chest wall, sharp pain on and off. She had been evaluated in the emergency room and had an EKG that showed sinus tachycardia and was counseled regarding her follow-up as outpatient. Patient was sent later to labor and delivery for evaluation of vaginal discharge Patient denies any uterine contractions or decreased movement. She denies any complications during her care. She was noted to be tachycardic 110-120s. She reports occasional shortness of breath especially when she lays down. Patient denies any fever, chills, diarrhea, known history of thyroid problem. She reports history of anxiety disorder and had been evaluated in the past many times for anxiety. Physical examination: General appearance, alert and oriented 4 patient does not appear to be in acute distress CV: Tachycardia regular rhythm, grade 2 murmur systolic ? Lungs: Clear to auscultation bilaterally Abdomen: Soft, gravid, fundal height consistent with gestational age. No tenderness to abdominal exam, no rebound tenderness, no guarding no rigidity NST: Appropriate for gestational age. No contractions seen on the monitor Sterile speculum examination: Vern cheesy vaginal yellowish green teas discharge consistent with yeast infection noted. Negative pooling, negative nitrazine, ROM plus was sent Cervix and exam closed and long EKG: Sinus tachycardia. Ventricular rate 116. Normal LA and QRS. RSR prime in V1 suggestive of right ventricular conduction delay. No acute ST segment elevation or depression. No ectopy. EP interpretation: Borderline ECG. EKG done in the emergency room Due to persistent tachycardia and leukocytosis, cannot rule out UTI patient will be and admitted to antepartum service Patient with episodes of chest pain, EKG concerning for right ventricular conduction delay. Needs cardiac evaluation CHUY MARQUES MD March 23, 2017 23:41
[2017-03-23 23:45] LABS: ALBUMIN 3.4 g/dl (3.3-4.9); ALBUMIN/GLOBULIN RATIO 1.13; BILIRUBIN,INDIRECT 0.1 mg/dl (0-1.1); BILIRUBIN,TOTAL 0.1 mg/dl (0.2-1.3); CALCIUM 8.9 mg/dl (8.4-10.2); CREATININE 0.44 mg/dl (0.44-1.00); POTASSIUM 3.6 mmol/L (3.5-5.1); TOTAL PROTEIN 6.4 g/dl (6.1-8.1); URIC ACID 4.5 mg/dl (3.1-7.9)
[2017-03-23 23:52] LABS: BACTERIA,URINE MANY; SQUAMOUS EPITHELIAL CELL,UR MANY
[2017-03-23 23:53] LABS: URINE RBCS 0-2 /HPF (0)
[2017-03-24] MEDS ORDERED: LACTATED RINGER'S 1,000 ML IV SCH
[2017-03-24] MEDS ORDERED: ACETAMINOPHEN 325 MG TAB PO PRN (00:30)
--- NOTE | 2017-03-24 00:33 | HP ---
Date/Time of Note Date/Time of Note DATE: 03/24/17 TIME: 00:29 OB - History Hx of Present Free Text/Dictation 26-year-old with IUP at 31 weeks and 1 day presented with complaint of yellowish greenish vaginal discharge for the last couple days. She is concerned that she might have leaking of amniotic fluid. She also reported that have chest pain in the left upper part of the chest wall, sharp pain on and off. She had been evaluated in the emergency room and had an EKG that showed sinus tachycardia and was counseled regarding her follow-up as outpatient. Patient was sent later to labor and delivery for evaluation of vaginal discharge Patient denies any uterine contractions or decreased movement. She denies any complications during her care. She was noted to be tachycardic 110-120s. She reports occasional shortness of breath especially when she lays down. Patient denies any fever, chills, diarrhea, known history of thyroid problem. She reports history of anxiety disorder and had been evaluated in the past many times for anxiety. Physical examination: General appearance, alert and oriented 4 patient does not appear to be in acute distress CV: Tachycardia regular rhythm, grade 2 murmur systolic ? Lungs: Clear to auscultation bilaterally Abdomen: Soft, gravid, fundal height consistent with gestational age. No tenderness to abdominal exam, no rebound tenderness, no guarding no rigidity NST: Appropriate for gestational age. No contractions seen on the monitor Sterile speculum examination: Vern cheesy vaginal yellowish green teas discharge consistent with yeast infection noted. Negative pooling, negative nitrazine, ROM plus was sent Cervix and exam closed and long EKG: Sinus tachycardia. Ventricular rate 116. Normal RI and QRS. RSR prime in V1 suggestive of right ventricular conduction delay. No acute ST segment elevation or depression. No ectopy. EP interpretation: Borderline ECG. EKG done in the emergency room Due to persistent tachycardia and leukocytosis, cannot rule out UTI patient will be and admitted to antepartum service Patient with episodes of chest pain, EKG concerning for right ventricular conduction delay. Needs cardiac evaluation Care: Other ( records are not available at this time and on admission) Past Family/Social History * Past Medical, Surgical, Family and Obstetric Histories reviewed from chart. OB Admission Exam Vital Signs Vital Signs Vital Signs Date Time Temp Pulse Resp B/P Pulse Ox O2 Delivery O2 Flow Rate FiO2 5/3/17 22:03 98.0 109 20 115/67 97 Room Air Physical Exam HEENT: WNL Heart: Other (Tachycardia, regular rhythm, systolic grade 2 murmur audible ? ) Lungs: Clear Abdomen: WNL Extremities: Normal Reflexes: Normal Heart Rate: 130's Accelerations: Accelerations Present Decelerations: No Decelerations Last 72 hours Lab Results CBC & BMP 03/23/17 22:55 Liver Function Test 03/23/17 22:55 Alanine Aminotransferase (ALT/SGPT) 31 Albumin 3.4 Alkaline Phosphatase 123 H Aspartate Amino Transf (AST/SGOT) 12 L Direct Bilirubin 0.00 Total Protein 6.4 OB Assessment/Plan Other Assessment: IUP at 31 weeks and 1 day by patient's as stated date Vaginal discharge, due to [place] vulvovaginitis. Exam findings typical of [place]. No evidence of PROM noted. R OM test negative nitrazine negative, no pooling, Chest pain, sharp, likely musculoskeletal Maternal persistent tachycardia, unclear etiology, patient has been afebrile, no evidence of thyroid problem TFT labs done and unremarkable. EKG consistent with right ventricular conduction delay and sinus tachycardia. Patient needs cardiac evaluation if tachycardia continues despite of IV hydration Leukocytosis, UTI Patient will be started on Rocephin. Urine will be sent for culture and sensitivity We will continue to monitor closely Repeat CBC after 24 hours of IV antibiotics Cardiology consultation tomorrow if patient continues to be tachycardic. NST every shift Vaginal clotrimazole cream for [place] vulvovaginitis vitamin CHUY MARQUES MD March 24, 2017 00:33
[2017-03-24] MEDS: SOD CHLORIDE 0.9% 1,000 ML IV SCH ×2 (00:34→08:29)
[2017-03-24] MEDS ORDERED: CEFTRIAXONE 1 GM/50 ML (PMX) 50 ML IVPB SCH (01:00)
--- NOTE | 2017-03-24 01:12 | TRIAGE ---
OB Triage Datetime Report Generated by CPN: 03/24/2017 01:12 Datetime: 03/24/2017 00:41 Assessment Type: Admission Assessment Vaginal Bleeding: None Maternal Assessment Level of Consciousness: Fully Conscious DTR's/Clonus: DTRs 2+; No Clonus Headache: Temporal Blurred Vision: No Respiratory Effort: Unlabored; Regular Rhythm; Equal Expansion Breath Sounds, Left: Clear and Equal Breath Sounds, Right: Clear and Equal Nausea/Vomiting: Denies RUQ Epigastric Pain: Denies Lower Extremities Edema: None Degree: None Upper Extremities Edema: None Degree: None Facial Edema: None Fall Risk Assessment History of Falling: (0) No Secondary Diagnosis: (0) No Ambulatory Aid: (0) Bedrest/Nurse Assist IV Therapy: (20) Yes Gait: (0) Normal/Bedrest/Immobile Mental Status: (0) Oriented to Own Ability Fall Score: 20 Fall Risk Score Definition: No Risk: No action required Heart Rate FHR Baseline Rate: 150 Variability: Moderate 6-25 bpm Accelerations: 15X15 Decelerations: None Category: Category I Pain Assessment Pain Scale: 4 Pain Presence: Constant Pain Type: Ache Pain Location: Head Pain Goal: 0 Datetime: 03/24/2017 00:24 Stage of : OB Triage Labor Evaluation Frequency: x1 Monitor Mode: External Duration (sec)2399: 50 Quality: Mild Pattern: Normal: <= 5 Contractions in 10 Minutes Resting Tone [place]: Relaxed Heart Rate FHR Baseline Rate: 145 Monitor Mode: External US Variability: Moderate 6-25 bpm Accelerations: 15X15 Decelerations: None Category: Category I Datetime: 03/24/2017 00:22 Time of Arrival: 03/24/2017 00:15 EGA: 31.2 Arrived By: Wheelchair Arrived From: Other Unit in Hospital Datetime: 03/24/2017 00:00 Stage of : OB Triage Labor Evaluation Frequency: None noted or palpated Monitor Mode: External Resting Tone [place]: Relaxed Heart Rate FHR Baseline Rate: 150 Monitor Mode: External US FHR Baseline Changes: No Baseline Change Variability: Moderate 6-25 bpm Accelerations: 15X15 Decelerations: None Category: Category I Datetime: 03/23/2017 23:45 Stage of : OB Triage Datetime: 03/23/2017 23:08 Stage of : OB Triage Vaginal Exam Dilatation (cms): 0.0 Exam By: Dr.Everettdalan Vaginal Bleeding: None Datetime: 03/23/2017 23:05 Stage of : OB Triage Amniotic Fluid Amount: None Vaginal Bleeding: None Pool: Negative Nitrazine: Negative Datetime: 03/23/2017 23:04 Stage of : OB Triage Temperature Route: Oral Datetime: 03/23/2017 23:00 Stage of : OB Triage Labor Evaluation Frequency: None noted or palpated Monitor Mode: External Resting Tone [place]: Relaxed Heart Rate FHR Baseline Rate: 150 Monitor Mode: External US FHR Baseline Changes: No Baseline Change Variability: Moderate 6-25 bpm Accelerations: 15X15 Decelerations: None Category: Category I Datetime: 03/23/2017 22:03 Stage of : OB Triage Datetime: 03/23/2017 22:00 Stage of : OB Triage Labor Evaluation Frequency: None noted or palpated Monitor Mode: External Resting Tone [place]: Relaxed Heart Rate FHR Baseline Rate: 150 Monitor Mode: External US Variability: Moderate 6-25 bpm Accelerations: 15X15 Decelerations: None Category: Category I Datetime: 03/23/2017 21:33 Stage of : OB Triage Assessment Type: Triage Maternal Assessment Level of Consciousness: Fully Conscious DTR's/Clonus: DTRs 2+; No Clonus Headache: Temporal; Bilateral; Frontal Blurred Vision: No Respiratory Effort: Unlabored; Regular Rhythm; Equal Expansion Breath Sounds, Left: Clear and Equal Breath Sounds, Right: Clear and Equal Nausea/Vomiting: Denies RUQ Epigastric Pain: Denies Lower Extremities Edema: Bilateral Lower Extremities Degree: 1+ Upper Extremities Edema: None Degree: None Facial Edema: None Temperature Route: Oral Fall Risk Assessment History of Falling: (0) No Secondary Diagnosis: (0) No Ambulatory Aid: (0) Bedrest/Nurse Assist IV Therapy: (0) No Gait: (0) Normal/Bedrest/Immobile Mental Status: (0) Oriented to Own Ability Fall Score: 0 Fall Risk Score Definition: No Risk: No action required Pain Assessment Pain Scale: 2 Pain Presence: Intermittent Pain Type: Cramping Pain Location: Abdomen Pain Relief Measures: Comfort Measures Datetime: 03/23/2017 21:30 Time of Arrival: 03/23/2017 21:20 EGA: 31.1 Arrived By: Wheelchair Arrived From: Emergency Dept Chief Complaint: Leaking/discharge Pt reports yellowish/brownish. sometimes greenish discharge since yesterday. Unsure if it's amnio tic fluid. Movement: Present Contractions: Irregular Contractions: 4x/day Rupture of Membranes: Unsure Vaginal Bleeding: None Vaginal Discharge: Present Recent Sexual Intercouse: Denies Abdominal Trauma: Not Applicable Patient Complaints: Cramping; Headache; Epigastric Pain; Dependent Edema; Other (Annotations: Data stored by [email or web address] on behalf of user) Additional Patient Complaints: Also reports frequent HAs, upper abdominal pain, _ edema of legs, h ands _ sometimes face. Time Provider Notified: 03/23/2017 22:03 Provider Notified: Initial Plan: Sterile speculum exam, Nitrazine, ROM Plus, PIH panel, U/S for EFW, BPP, cervical le ngth Datetime: 02/02/2017 12:40 EGA: 24.1 Datetime: 02/01/2017 06:35 EGA: 24.0 Datetime: 02/01/2017 04:38 Fall Score: 0 Fall Risk Score Definition: No Risk: No action required
--- NOTE | 2017-03-24 16:18 | DS ---
Date/Time of Note Date/Time of Note DATE: 03/24/17 TIME: 16:10 Discharge Summary Admission/Discharge Info Admit Date/Time Hospital visit and discharge March 24, 2017 This patient is a 26 years old 4 para 3 with estimated date of confinement of May 28, 2017 which makes her 35 weeks and 5/7 of a week. She came to emergency room last night with cardiac tachycardia EKG showed sinus tachycardia of about 105 230 however the heart rate came down gradually to normal rate and she was sent for OB clearance on pelvic examination due to excessive amount of vaginal cheesy discharge. Cervix was closed Subsequently she was admitted in the hospital for observation today she is fairly calm portable heart tone is normal she has no contraction On pelvic examination the cervix is closed Her blood sugar test during the visit was given as fasting 85 1 hour 193 2 hours 173 and 3 hours 140. Apparently so far a abnormal glucose test was controlled by diet On examination today she is really comfortable heart tones normal she does not have much of contractions a prescription given for nystatin vaginal cream to be used one applicator overnight and she is discharged home to return to the clinic and to be seen by her band and cuff cutter soon Discharge Date/Time Final Diagnosis Final diagnosis: IUP of 35 5/7 weeks , Rule out labor Laboratory Tests Test 03/23/17 21:30 03/23/17 22:50 03/23/17 22:55 03/23/17 23:05 Urine Color LT. YELLOW Urine Clarity CLEAR Urine pH 7.0 Urine Specific [place] 1.010 Urine Ketones 15 Urine Nitrite NEGATIVE Urine Bilirubin NEGATIVE Urine Urobilinogen 0.2 E.U./dL Urine Leukocyte Esterase 3+ Urine Microscopic RBC 0-2/HPF Urine Microscopic WBC 25-50/HPF Urine Squamous Epithelial Cells MANY Urine Bacteria MANY Urine Hemoglobin NEGATIVE Urine Glucose NEGATIVE% Urine Total Protein NEGATIVE Thyroid Stimulating Hormone (TSH) 0.845MIU/L Free Thyroxine 0.76ng/dl White Blood Count 14.110^3/ul Red Blood Count 3.7510^6/ul Hemoglobin 10.9g/dl Hematocrit 32.8% Mean Corpuscular Volume 87.5fl Mean Corpuscular Hemoglobin 29.1pg Mean Corpuscular Hemoglobin Concent 33.2g/dl Red Cell Distribution Width 13.3% Platelet Count 10949^3/UL Mean Platelet Volume 10.4fl Neutrophils % 75.7% Lymphocytes % 16.4% Monocytes % 5.7% Eosinophils % 0.4% Basophils % 0.3% Nucleated Red Blood Cells % 0.0/100WBC Neutrophils # 10.710^3/ul Lymphocytes # 2.310^3/ul Monocytes # 0.810^3/ul Eosinophils # 0.110^3/ul Basophils # 0.010^3/ul Nucleated Red Blood Cells # 0.010^3/ul Prothrombin Time 13.5Sec Prothrombin Time Ratio 1.1 INR International Normalized Ratio 1.03 Activated Partial Thromboplast Time 27.5Sec Fibrinogen 410.0mg/dl Sodium Level 133mmol/L Potassium Level 3.6mmol/L Chloride Level 105mmol/L Carbon Dioxide Level 22mmol/L Anion Gap 10 Blood Urea Nitrogen 6mg/dl Creatinine 0.44mg/dl Glucose Level 93mg/dl Uric Acid 4.5mg/dl Calcium Level 8.9mg/dl Total Bilirubin 0.1mg/dl Direct Bilirubin 0.00mg/dl Indirect Bilirubin 0.1mg/dl Aspartate Amino Transf (AST/SGOT) 12IU/L Alanine Aminotransferase (ALT/SGPT) 31IU/L Alkaline Phosphatase 123IU/L Total Protein 6.4g/dl Albumin 3.4g/dl Globulin 3.00g/dl Albumin/Globulin Ratio 1.13 Membranes Rupture NEGATIVE Test 03/24/17 05:00 03/24/17 15:12 Serum Fasting Glucose Urine Urine Fasting Glucose Bedside Glucose 106mg/dL Current Medications Medications (Trade) Dose Ordered Sig/Prabhjot Route PRN Reason Start Time Stop Time Status Last Admin Dose Admin Lactated Ringer's 1,000 ml @ 125 mls/hr Q8H IV 03/24/17 00:00 03/24/17 01:21 DC Lactated Ringer's 1,000 ml @ 1,000 mls/hr Q1H ONCE IV 03/23/17 23:30 03/24/17 00:29 DC 03/23/17 23:45 Ceftriaxone Sodium 50 ml @ 100 mls/hr Q24H IVPB 03/24/17 01:00 03/24/17 00:58 Sodium Chloride (NS) 1,000 ml @ 125 mls/hr Q8H IV 03/24/17 00:15 03/24/17 08:29 Clotrimazole (Clotrim 1% Vaginal Cr) 1 applic HS VAG 03/24/17 21:00 03/31/17 20:59 Acetaminophen (Tylenol Tab) 650 mg Q4H PRN PO PAIN AND OR ELEVATED TEMP 03/24/17 00:30 03/24/17 00:58 Hospital Course Patient was for possible premature labor, Home Meds Discontinued Reported Medications Vit-Iron Fumarate-FA ( Vitamin Tablet) 1 Each Tablet, 1 TAB PO DAILY, TAB 02/01/17 Pending Labs Laboratory Tests Test 03/23/17 21:30 03/23/17 22:50 03/23/17 22:55 03/23/17 23:05 Urine Color LT. YELLOW (YELLOW) Urine Clarity CLEAR (CLEAR) Urine pH 7.0 (5.0-9.0) Urine Specific [place] 1.010 (1.003-1.030) Urine Ketones 15 (NEGATIVE) Urine Nitrite NEGATIVE (NEGATIVE) Urine Bilirubin NEGATIVE (NEGATIVE) Urine Urobilinogen 0.2 E.U./dL (0.1-1.0) Urine Leukocyte Esterase 3+ (NEGATIVE) Urine Microscopic RBC 0-2/HPF (0) Urine Microscopic WBC 25-50/HPF (0) Urine Squamous Epithelial Cells MANY Urine Bacteria MANY Urine Hemoglobin NEGATIVE (NEGATIVE) Urine Glucose NEGATIVE% (NEGATIVE) Urine Total Protein NEGATIVE (NEGATIVE) Thyroid Stimulating Hormone (TSH) 0.845MIU/L (0.465-4.680) Free Thyroxine 0.76ng/dl (0.79-2.35) White Blood Count 14.110^3/ul (4.8-10.8) Red Blood Count 3.7510^6/ul (4.20-5.40) Hemoglobin 10.9g/dl (12.0-16.0) Hematocrit 32.8% (37.0-47.0) Mean Corpuscular Volume 87.5fl (82.0-101.0) Mean Corpuscular Hemoglobin 29.1pg (29.0-33.0) Mean Corpuscular Hemoglobin Concent 33.2g/dl (32.0-37.0) Red Cell Distribution Width 13.3% (11.5-14.5) Platelet Count 07211^3/UL (140-415) Mean Platelet Volume 10.4fl (7.4-10.4) Neutrophils % 75.7% (39.0-77.0) Lymphocytes % 16.4% (15.0-51.0) Monocytes % 5.7% (0.0-11.0) Eosinophils % 0.4% (0.0-7.0) Basophils % 0.3% (0.0-2.0) Nucleated Red Blood Cells % 0.0/100WBC (0.0-0.0) Neutrophils # 10.710^3/ul (1.6-7.5) Lymphocytes # 2.310^3/ul (0.8-2.9) Monocytes # 0.810^3/ul (0.3-0.9) Eosinophils # 0.110^3/ul (0.0-0.5) Basophils # 0.010^3/ul (0.0-0.1) Nucleated Red Blood Cells # 0.010^3/ul (0.0-0.0) Prothrombin Time 13.5Sec (12.2-14.2) Prothrombin Time Ratio 1.1 INR International Normalized Ratio 1.03 Activated Partial Thromboplast Time 27.5Sec (25.0-35.0) Fibrinogen 410.0mg/dl (207-461) Sodium Level 133mmol/L (135-144) Potassium Level 3.6mmol/L (3.5-5.1) Chloride Level 105mmol/L (97-110) Carbon Dioxide Level 22mmol/L (21-31) Anion Gap 10 (8-16) Blood Urea Nitrogen 6mg/dl (7-20) Creatinine 0.44mg/dl (0.44-1.00) Glucose Level 93mg/dl (70-220) Uric Acid 4.5mg/dl (3.1-7.9) Calcium Level 8.9mg/dl (8.4-10.2) Total Bilirubin 0.1mg/dl (0.2-1.3) Direct Bilirubin 0.00mg/dl (0.00-0.20) Indirect Bilirubin 0.1mg/dl (0-1.1) Aspartate Amino Transf (AST/SGOT) 12IU/L (15-46) Alanine Aminotransferase (ALT/SGPT) 31IU/L (13-69) Alkaline Phosphatase 123IU/L (42-121) Total Protein 6.4g/dl (6.1-8.1) Albumin 3.4g/dl (3.3-4.9) Globulin 3.00g/dl (1.3-3.2) Albumin/Globulin Ratio 1.13 Membranes Rupture NEGATIVE (NEGATIVE) Test 03/24/17 05:00 03/24/17 15:12 Serum Fasting Glucose Urine Urine Fasting Glucose Bedside Glucose 106mg/dL (70-220) CARIE HANDY MD March 24, 2017 16:17
[2017-03-24] MEDS ORDERED: CLOTRIMAZOLE 1% 45 GM VAG CR VAG SCH (21:00)
== END 2017-03-24 17:00 | disposition home or self-care (01) | DRG 781 ==
LOC: OBT 21:24 → L-D 21:25 → OBT 23:59 → OBG 23:59
PROVIDERS: ADMIT Obstetrics & Gynecology; ATTEND Obstetrics & Gynecology
DX: O98.813 Other maternal infectious and parasitic diseases complicating pregnancy, third trimester (principal); O26.893 Other specified pregnancy related conditions, third trimester; B37.3 Candidiasis of vulva and vagina; Z3A.31 31 weeks gestation of pregnancy; R00.0 Tachycardia, unspecified
CPT/HCPCS: 76815; 76817; 76818; 80053; 81001; 81003; 82951; 82962; 84112; 84439; 84443; 84560; 85025; 85384; 85610; 85730; 87086; 96360; G0463; J0696; J7030; J7120

== ENCOUNTER 2017-03-28 19:56 | Outpatient (CLI) | payer OTHER ==
[~2017-03-28] VITALS: Ht 162.6 cm; Wt 87.6 kg
[2017-03-28 20:28] VITALS: Ht 162.6 cm; Wt 87.6 kg
--- NOTE | 2017-05-12 17:13 | QN ---
Documentation Comment IUP 30w chestpain KEYONNA VALDERRAMA MD May 12, 2017 17:13
== END 2017-03-28 20:20 | disposition home or self-care (01) ==
LOC: L-D 19:56 → OBT 19:56
PROVIDERS: ATTEND Obstetrics & Gynecology
DX: O26.893 Other specified pregnancy related conditions, third trimester (principal); R07.9 Chest pain, unspecified; Z3A.30 30 weeks gestation of pregnancy
CPT/HCPCS: G0463

== ENCOUNTER 2017-03-28 20:30 | Emergency (ER) | payer OTHER ==
[~2017-03-28] VITALS: Ht 154.9 cm; Wt 87.0 kg
[2017-03-28 20:35] VITALS: Ht 154.9 cm; Wt 87.0 kg
[2017-03-28 23:18] LABS: URINE BLOOD (Dip) POC Trace-intact (NEGATIVE)
[2017-03-28 23:20] LABS: ADD SCAN DIFF NO
[2017-03-28 23:24] LABS: BASOPHILS % 0.2 % (0.0-2.0); EOSINOPHILS % 0.3 % (0.0-7.0); HEMATOCRIT 38.1 % (37.0-47.0); HEMOGLOBIN 12.4 g/dl (12.0-16.0); LYMPHOCYTES # 2.7 10^3/ul (0.8-2.9); LYMPHOCYTES % 19.2 % (15.0-51.0); MEAN CORPUSCULAR HEMOGLOBIN 28.6 pg (29.0-33.0); MEAN CORPUSCULAR HGB CONC 32.5 g/dl (32.0-37.0); MEAN PLATELET VOLUME 10.5 fl (7.4-10.4); MONOCYTE # 0.8 10^3/ul (0.3-0.9); MONOCYTES % 5.4 % (0.0-11.0); NEUTROPHIL # 10.1 10^3/ul (1.6-7.5); NEUTROPHILS % 73.2 % (39.0-77.0); PLATELET COUNT 226 10^3/UL (140-415); RED BLOOD COUNT 4.33 10^6/ul (4.20-5.40); RED CELL DISTRIBUTION WIDTH 13.7 % (11.5-14.5); WHITE BLOOD COUNT 13.8 10^3/ul (4.8-10.8)
[2017-03-29 00:19] LABS: CALCIUM 9.2 mg/dl (8.4-10.2); CREATININE 0.53 mg/dl (0.44-1.00); POTASSIUM 3.8 mmol/L (3.5-5.1)
[2017-03-29 01:02] LABS: BARBITURATES Negative (NEGATIVE); BENZODIAZEPINES Negative (NEGATIVE); CANNABINOIDS Negative (NEGATIVE); COCAINE Negative (NEGATIVE); OPIATES Negative (NEGATIVE)
[2017-03-29] MEDS ORDERED: LIDOCAINE 1% (MDV) 20 ML INJ SC ONE (01:30)
[2017-03-29] MEDS ORDERED: CEFTRIAXONE 1 GM INJ IM ONE (01:30)
--- NOTE | 2017-03-30 20:46 | ERD ---
ER Documentation Chief Complaint Date/Time DATE: 03/30/17 TIME: 20:35 Chief Complaint CP X2 WEEKS 31 WEEKS PREG. PREVIOUS EKG NORMAL HPI This is a 26-year-old female presenting to the ER for chest wall pain. Patient states she is currently 31 weeks she has had intermittent chest wall pain since finding out she is . Denies any difficulty breathing or shortness of breath at this time. She was recently diagnosed with gestational diabetes and is not taking any medications. Patient states she has had a complicated has been in the ER almost every week. A0. Patient has past medical history of anxiety. Her last normal menstrual period was August 21, 2016. Patient denies any vaginal bleeding, pelvic pain or vaginal discharge. Denies any vaginal pain pressure or any anal pain or pressure. Patient has not traveled anywhere. She denies any calf swelling or redness. Patient states she was recently diagnosed with UTI and given an antibiotic injection 2 days ago. ROS All systems reviewed and are negative except as per history of present illness. Medications Home Meds Discontinued Reported Medications Vit-Iron Fumarate-FA ( Vitamin Tablet) 1 Each Tablet, 1 TAB PO DAILY, TAB 02/01/17 Allergies Allergies: Coded Allergies: No Known Allergy (Unverified , 03/28/17) PMhx/Soc History of Surgery: No Anesthesia Reaction: No Hx Neurological Disorder: No Hx Respiratory Disorders: No Hx Cardiac Disorders: No Hx Psychiatric Problems: Yes (Anxiety) Hx Miscellaneous Medical Probl: Yes (UTI) Hx Alcohol Use: No Hx Substance Use: No Hx Tobacco Use: No Physical Exam Vitals Vital Signs Date Time Temp Pulse Resp B/P Pulse Ox O2 Delivery O2 Flow Rate FiO2 03/28/17 20:35 99.2 117 20 121/70 99 Physical Exam Const: no acute distress, alert Head: Atraumatic Eyes: Normal Conjunctiva ENT: Normal External Ears, Nose and Mouth. Neck: Full range of motion..~ No meningismus. Resp: Clear to auscultation bilaterally Cardio: Regular rate and rhythm, no murmurs Abd: Soft, non tender, non distended. Normal bowel sounds Skin: No petechiae or rashes Back: No midline or flank tenderness Ext: No cyanosis, or edema Neur: Awake and alert Psych: Normal Mood and Affect Result Diagram: 5/8/17 2310 5/8/17 2310 Results 24 hrs Laboratory Tests Test 03/28/17 23:10 03/28/17 23:20 White Blood Count 13.810^3/ul Red Blood Count 4.3310^6/ul Hemoglobin 12.4g/dl Hematocrit 38.1% Mean Corpuscular Volume 88.0fl Mean Corpuscular Hemoglobin 28.6pg Mean Corpuscular Hemoglobin Concent 32.5g/dl Red Cell Distribution Width 13.7% Platelet Count 99996^3/UL Mean Platelet Volume 10.5fl Neutrophils % 73.2% Lymphocytes % 19.2% Monocytes % 5.4% Eosinophils % 0.3% Basophils % 0.2% Nucleated Red Blood Cells % 0.0/100WBC Neutrophils # 10.110^3/ul Lymphocytes # 2.710^3/ul Monocytes # 0.810^3/ul Eosinophils # 0.010^3/ul Basophils # 0.010^3/ul Nucleated Red Blood Cells # 0.010^3/ul Sodium Level 134mmol/L Potassium Level 3.8mmol/L Chloride Level 103mmol/L Carbon Dioxide Level 24mmol/L Anion Gap 11 Blood Urea Nitrogen 8mg/dl Creatinine 0.53mg/dl Glucose Level 90mg/dl Calcium Level 9.2mg/dl Urine Opiates Screen Negative Urine Barbiturates Negative Urine Amphetamines Screen Negative Urine Benzodiazepines Screen Negative Urine Cocaine Screen Negative Urine Cannabinoids Negative Bedside Urine pH (LAB) 7.5 Bedside Urine Protein (LAB) 1+ Bedside Urine Glucose (UA) Negative Bedside Urine Ketones (LAB) Negative Bedside Urine Blood Trace-intact Bedside Urine Nitrite (LAB) Negative Bedside Urine Leukocyte Esterase (L 3+ Current Medications Medications (Trade) Dose Ordered Sig/Prabhjot Route PRN Reason Start Time Stop Time Status Last Admin Dose Admin Ceftriaxone Sodium (Rocephin) 1 gm ONCE ONCE IM 03/29/17 01:30 03/29/17 01:31 DC 03/29/17 01:37 Lidocaine (Xylocaine 1% (Mdv) 20 ml) 20 ml ONCE ONCE SC 03/29/17 01:30 03/29/17 01:31 DC 03/29/17 01:38 Procedures/MDM MDM: 26 year old female with relevant medical history of anxiety and newly diagnosed gestational diabetes presents to ER for intermittent chest wall pain. Patient is a A0 and states this has been difficult for her. EKG shows sinus tachycardia as interpreted by Dr. Siu. Labs are unremarkable. No signs of hypoglycemia, hyperglycemia, anemia or infection. Urine show 3+ leukocyte Estrace. Consulted Dr. Crowell, laborist second cook and baker who agrees that patient is to receive 1gm Rocephin while in the ED and follow up with PCP or OB-SPECIAL EDUCATION ADMINISTRATOR in the next 2-3 days for reassessment. Vitals are stable. Low suspicion for intrathoracic pathology. No s/s respiratory distress. Differential diagnosis is anxiety, acute IA, pneumothorax, PE, UTI, pyelonephritis, sepsis, bronchitis, pneumonia, URI and influenza. Patient is appropriate for outpatient management and instructed patient to follow up with PCP in the next 2-3 days. Return to ED for any new or worsening symptoms. Patient verbalizes understanding. All questions answered at discharge. Departure Diagnosis: Primary Impression: UTI (urinary tract infection) Urinary tract infection type: acute cystitis Hematuria presence: with hematuria Qualified Code: N30.01 - Acute cystitis with hematuria Additional Impression: Chest pain Chest pain type: unspecified Qualified Code: R07.9 - Chest pain, unspecified type Condition: Stable Patient Instructions: Understanding Urinary Tract Infections (UTIs), Chest Pain , Uncertain Cause Additional Instructions: Call your primary care doctor TOMORROW for an appointment during the next 2-3 days.See the doctor sooner or return here if your condition worsens before your appointment time. Return to ED for any high fever, chest pain, difficulty breathing, shortness breath, wheezing, vomiting, diarrhea, abdominal pain or any new or worsening symptoms. NICHOLAS GANDHI NP March 30, 2017 20:46
== END 2017-03-29 01:41 | disposition home or self-care (01) ==
LOC: FTE 20:30
DX: O23.13 Infections of bladder in pregnancy, third trimester (principal); R07.89 Other chest pain; O24.419 Gestational diabetes mellitus in pregnancy, unspecified control; Z3A.31 31 weeks gestation of pregnancy
CPT/HCPCS: 36415; 80048; 80307; 81003; 85025; 93005; 96372; J0696; Z7502; Z7610

== ENCOUNTER 2017-03-30 10:04 | Emergency (ER) | payer OTHER ==
[~2017-03-30] VITALS: Ht 162.6 cm; Wt 87.0 kg
[2017-03-30 10:07] VITALS: Ht 162.6 cm; Wt 87.0 kg
[2017-03-30 11:16] LABS: ADD SCAN DIFF NO
--- NOTE | 2017-03-30 11:19 | RADRPT ---
PROCEDURE: US OB. CLINICAL INDICATION: Size and dates , pelvic pain TECHNIQUE: Multiple sonographic images of the pelvis and gravid uterus were obtained. The images were reviewed on a PACS workstation. COMPARISON: 03/23/2017 FINDINGS: There is a single viable intrauterine gestation. Cardiac activity is present with 166 beats per min [place]. There is a vertex presentation. The placenta is anterior. There is no evidence for an abruption or placenta previa. There is a normal amount of amniotic fluid with an AIMEE = 13.6 cm. Measurements were made in order to determine age. The results are as follows: BPD =8.5 cm HC =30.1 cm AC =29.2 cm FL =6.0 cm Estimated gestational age of approximately 33 weeks and 0 days based on ultrasound measurements. Clinical age: 32 weeks and 1 day. The estimated date of delivery is 05/18/2017, based on ultrasound measurements. The EFW = 2029 g, 57%, based on LMP age. RPTAT: AA IMPRESSION: Single viable intrauterine gestation of approximately 33 weeks and 0 days based on ultrasound measu rements. .Jersey Roberts MD, Date Time Electronically viewed and signed by .Jersey Roberts MD, on 03/30/2017 11:18 .S/
[2017-03-30 11:20] LABS: BASOPHILS % 0.4 % (0.0-2.0); EOSINOPHILS % 0.4 % (0.0-7.0); HEMATOCRIT 36.3 % (37.0-47.0); LYMPHOCYTES # 1.4 10^3/ul (0.8-2.9); LYMPHOCYTES % 14.3 % (15.0-51.0); MEAN CORPUSCULAR HEMOGLOBIN 28.8 pg (29.0-33.0); MEAN CORPUSCULAR HGB CONC 33.1 g/dl (32.0-37.0); MEAN CORPUSCULAR VOLUME 87.1 fl (82.0-101.0); MEAN PLATELET VOLUME 10.7 fl (7.4-10.4); MONOCYTE # 0.7 10^3/ul (0.3-0.9); NEUTROPHIL # 7.6 10^3/ul (1.6-7.5); NEUTROPHILS % 76.1 % (39.0-77.0); PLATELET COUNT 199 10^3/UL (140-415); RED BLOOD COUNT 4.17 10^6/ul (4.20-5.40); RED CELL DISTRIBUTION WIDTH 13.6 % (11.5-14.5); WHITE BLOOD COUNT 9.9 10^3/ul (4.8-10.8)
[2017-03-30 11:37] LABS: ADD UMIC YES; URINE BILIRUBIN (Dip) NEGATIVE (NEGATIVE); URINE BLOOD (Dip) NEGATIVE (NEGATIVE); URINE COLOR LT. YELLOW (YELLOW); URINE GLUCOSE (Dip) NEGATIVE (NEGATIVE); URINE KETONES (Dip) NEGATIVE (NEGATIVE); URINE LEUKOCYTE ESTERASE (Dip) 2+ (NEGATIVE); URINE NITRITE (Dip) NEGATIVE (NEGATIVE); URINE TOTAL PROTEIN (Dip) NEGATIVE (NEGATIVE); URINE UROBILINOGEN (Dip) 0.2 E.U./dL (0.1-1.0)
[2017-03-30 11:39] LABS: ALBUMIN 3.8 g/dl (3.3-4.9); ALBUMIN/GLOBULIN RATIO 1.11; BILIRUBIN,INDIRECT 0.3 mg/dl (0-1.1); BILIRUBIN,TOTAL 0.3 mg/dl (0.2-1.3); CALCIUM 9.6 mg/dl (8.4-10.2); CREATININE 0.46 mg/dl (0.44-1.00); POTASSIUM 3.8 mmol/L (3.5-5.1); TOTAL PROTEIN 7.2 g/dl (6.1-8.1)
[2017-03-30 11:50] LABS: BACTERIA,URINE FEW; SQUAMOUS EPITHELIAL CELL,UR FEW; URINE RBCS NONE SEEN /HPF (0)
[2017-03-30 12:09] LABS: THYROID STIMULATING HORMONE 0.583 MIU/L (0.465-4.680); TRIIODOTHYRONINE 1.83 ng/ml (0.97-1.69)
--- NOTE | 2017-03-30 15:06 | ERD ---
ER Documentation Chief Complaint Date/Time DATE: 03/30/17 TIME: 15:02 Chief Complaint palpitations today, 31 weeks HPI This is a 26-year-old female presents to the ER because this morning she woke up with palpitations. Patient denies any chest pain shortness of breath at this time. She was recently diagnosed with gestational diabetes and is not taking any medications. She is currently about 31 weeks . Patient states she has had a complicated has been in the ER almost every week. A0. Patient has past medical history of anxiety. Her last normal menstrual period was August 21, 2016. Patient denies any vaginal bleeding, she denies any discharge. Denies any vaginal pain pressure or any anal pain or pressure. Patient has not traveled anywhere. She denies any calf swelling or redness. ROS 12 point review of systems was done, all negative except per HPI. Medications Home Meds Discontinued Reported Medications Vit-Iron Fumarate-FA ( Vitamin Tablet) 1 Each Tablet, 1 TAB PO DAILY, TAB 02/01/17 Allergies Allergies: Coded Allergies: No Known Allergy (Unverified , 03/28/17) PMhx/Soc History of Surgery: No Anesthesia Reaction: No Hx Neurological Disorder: No Hx Respiratory Disorders: No Hx Cardiac Disorders: No Hx Psychiatric Problems: Yes (Anxiety) Hx Miscellaneous Medical Probl: Yes (UTI, recent diagnosis of gestational diabetes) Hx Alcohol Use: No Hx Substance Use: No Hx Tobacco Use: No Smoking Status: Never smoker Physical Exam Vitals Vital Signs Date Time Temp Pulse Resp B/P Pulse Ox O2 Delivery O2 Flow Rate FiO2 03/30/17 10:07 98.1 105 18 127/58 99 Physical Exam GENERAL: The patient is well developed and appropriate for usual state of health , in no apparent distress. HEENT: Atraumatic. CHEST: Clear to auscultation bilaterally. There are no rales, wheezes or rhonchi. HEART: Regular rate and rhythm. No murmurs, clicks, rubs or gallops. ABDOMEN: Soft, nontender and nondistended. Good bowel sounds. No rebound or guarding. No gross peritonitis. No gross organomegaly or masses. No Holland sign or McBurney point tenderness. No pulsatile masses. BACK: No midline or flank tenderness. NEURO: Alert and oriented. SKIN: There is no apparent rash or petechia. The skin is warm and dry. Result Diagram: 03/30/17 1101 03/30/17 1101 Results 24 hrs Laboratory Tests Test 03/30/17 11:01 White Blood Count 9.910^3/ul Red Blood Count 4.1710^6/ul Hemoglobin 12.0g/dl Hematocrit 36.3% Mean Corpuscular Volume 87.1fl Mean Corpuscular Hemoglobin 28.8pg Mean Corpuscular Hemoglobin Concent 33.1g/dl Red Cell Distribution Width 13.6% Platelet Count 61503^3/UL Mean Platelet Volume 10.7fl Neutrophils % 76.1% Lymphocytes % 14.3% Monocytes % 7.0% Eosinophils % 0.4% Basophils % 0.4% Nucleated Red Blood Cells % 0.0/100WBC Neutrophils # 7.610^3/ul Lymphocytes # 1.410^3/ul Monocytes # 0.710^3/ul Eosinophils # 0.010^3/ul Basophils # 0.010^3/ul Nucleated Red Blood Cells # 0.010^3/ul Urine Color LT. YELLOW Urine Clarity CLEAR Urine pH 7.0 Urine Specific [place] 1.010 Urine Ketones NEGATIVE Urine Nitrite NEGATIVE Urine Bilirubin NEGATIVE Urine Urobilinogen 0.2 E.U./dL Urine Leukocyte Esterase 2+ Urine Microscopic RBC NONE SEEN/HPF Urine Microscopic WBC 5-10/HPF Urine Squamous Epithelial Cells FEW Urine Bacteria FEW Urine Hemoglobin NEGATIVE Urine Glucose NEGATIVE% Urine Total Protein NEGATIVE Sodium Level 135mmol/L Potassium Level 3.8mmol/L Chloride Level 105mmol/L Carbon Dioxide Level 25mmol/L Anion Gap 9 Blood Urea Nitrogen 5mg/dl Creatinine 0.46mg/dl Glucose Level 92mg/dl Bedside Glucose 90mg/dL Calcium Level 9.6mg/dl Total Bilirubin 0.3mg/dl Direct Bilirubin 0.00mg/dl Indirect Bilirubin 0.3mg/dl Aspartate Amino Transf (AST/SGOT) 14IU/L Alanine Aminotransferase (ALT/SGPT) 30IU/L Alkaline Phosphatase 140IU/L Total Protein 7.2g/dl Albumin 3.8g/dl Globulin 3.40g/dl Albumin/Globulin Ratio 1.11 Thyroid Stimulating Hormone (TSH) 0.583MIU/L Thyroxine (T4) 17.7ug/dl Total Triiodothyronine 1.83ng/ml Procedures/MDM Differential diagnosis includes but is not limited to; STEMI, dissection, pneumothorax, PE, esophageal rupture, tamponade, pneumonia, pericarditis, GERD, musculoskeletal, endocarditis, anxiety. This is a 26-year-old female presents here with palpitations. EKG was taken at [address] elevation or T-wave inversion. EKG was signed by Dr. Isaac. I discussed his case with Dr. Hernández and he agrees with my medical decision making. Patient does not have any chest pain or shortness of breath I doubt intrathoracic abnormality. Workup was negative for any infection, anemia, hypoglycemia or hyperglycemia. Patient is well-appearing. I doubt DVT or pulmonary embolism. Patient needs to follow-up with her primary care doctor within 1-2 days or return to ER sooner if symptoms worsen. My medical decision making the patient she understands and agrees with plan Departure Diagnosis: Primary Impression: Palpitations Condition: Stable Patient Instructions: Palpitations Additional Instructions: Call your primary care doctor TOMORROW for an appointment during the next 1-2 days.See the doctor sooner or return here if your condition worsens before your appointment time. FAIZA GILES March 30, 2017 15:06
== END 2017-03-30 12:49 | disposition home or self-care (01) ==
LOC: FTE 10:04
DX: O99.89 Other specified diseases and conditions complicating pregnancy, childbirth and the puerperium (principal); R00.2 Palpitations; Z3A.33 33 weeks gestation of pregnancy
CPT/HCPCS: 76805; 80053; 81001; 81003; 82962; 84436; 84443; 84480; 85025; 87086; 93005

== ENCOUNTER 2017-04-06 22:42 | Outpatient (CLI) | payer OTHER ==
[~2017-04-06] VITALS: Ht 162.6 cm; Wt 87.9 kg
[2017-04-06 23:05] VITALS: BP 117/65; PULSE 112; RESP 18
[2017-04-06 23:34] LABS: ADD UMIC YES; URINE BILIRUBIN (Dip) NEGATIVE (NEGATIVE); URINE BLOOD (Dip) NEGATIVE (NEGATIVE); URINE COLOR LT. YELLOW (YELLOW); URINE GLUCOSE (Dip) NEGATIVE (NEGATIVE); URINE KETONES (Dip) NEGATIVE (NEGATIVE); URINE LEUKOCYTE ESTERASE (Dip) 3+ (NEGATIVE); URINE NITRITE (Dip) NEGATIVE (NEGATIVE); URINE TOTAL PROTEIN (Dip) NEGATIVE (NEGATIVE); URINE UROBILINOGEN (Dip) 0.2 E.U./dL (0.1-1.0)
[2017-04-06 23:53] LABS: SQUAMOUS EPITHELIAL CELL,UR MANY
[2017-04-06 23:54] LABS: BACTERIA,URINE MANY
--- NOTE | 2017-04-07 00:20 | QN ---
Documentation Comment 26-year-old with IUP at 33 weeks and [address] day with care with Dr. Campbell's presented with complaint of headache in the temporal and occipital area as well as dizziness. She denies any leaking of fluid, decreased movement, vaginal bleeding, blurred vision, epigastric pain, nausea vomiting or any other complaints. She denies any complications during current Physical examination: General appearance: Alert and oriented 4 patient appears to be in mild to moderate distress. Neuro exam: Cranial nerves I to XII normal Neck: Supple Abdomen: Soft, gravid, fundal height consistent with gestational age NST: Category 1 No contractions on the monitor seen Blood pressures monitored and had been normal Assessment: IUP at 33 weeks and 1 day Tension headache, No evidence of labor, PPROM No evidence of preeclampsia Plan: Tylenol p.o. every 6 hours as needed pain Adequate hydration labor precaution and kick count discussed Follow-up with OB office in a couple days after discharge from the hospital explained Recommended to immediately contact or present to triage again if she has any other symptoms including nausea, vomiting, blurred vision, epigastric pain, decreased movement, uterine contractions, leaking of fluid or any other concerns. Patient verbalized understanding. CHUY MARQUES MD April 07, 2017 00:20
[2017-04-07] MEDS ORDERED: ACETAMINOPHEN 325 MG TAB PO ONE (00:30)
--- NOTE | 2017-04-07 00:59 | TRIAGE ---
OB Triage Datetime Report Generated by CPN: 04/07/2017 00:59 Datetime: 04/06/2017 23:16 Time of Arrival: 04/06/2017 22:37 EGA: 33.1 Arrived By: Ambulatory Arrived From: Home Chief Complaint: w/ c/o ANDRES and dizziness since yesterday and occas pelvic pressure when she w alks Movement: Present Contractions: Denies/Absent Rupture of Membranes: Denies Vaginal Bleeding: None Vaginal Discharge: Denies Recent Sexual Intercouse: Denies Abdominal Trauma: Not Applicable Patient Complaints: Headache; Dizziness Initial Plan: EFM,UA Datetime: 04/06/2017 22:51 Stage of : OB Triage Maternal Assessment Level of Consciousness: Fully Conscious Headache: Occipital Blurred Vision: No Respiratory Effort: Unlabored Nausea/Vomiting: Denies RUQ Epigastric Pain: Denies Facial Edema: None Labor Evaluation Frequency: placed Monitor Mode: External Resting Tone [place]: Relaxed Monitor Mode: External US Comments: FHT 150 Pain Assessment Pain Scale: 8 Pain Presence: Constant Pain Type: Stabbing; Pressure Pain Location: Head Datetime: 03/28/2017 20:06 Labor Evaluation Frequency: 0 Monitor Mode: External Resting Tone [place]: Relaxed Contraction Comments: pt denies UCs or cramp like pain Heart Rate FHR Baseline Rate: 150 Monitor Mode: External US Variability: Moderate 6-25 bpm Accelerations: 15X15 Decelerations: None Category: Category I Datetime: 03/28/2017 20:00 Assessment Type: Triage EGA: 31.6 Maternal Assessment Level of Consciousness: Fully Conscious DTR's/Clonus: DTRs 2+; No Clonus Headache: Denies Blurred Vision: No Respiratory Effort: Unlabored; Regular Rhythm; Equal Expansion Nausea/Vomiting: Denies RUQ Epigastric Pain: Denies Facial Edema: None Fall Risk Assessment History of Falling: (0) No Secondary Diagnosis: (0) No Ambulatory Aid: (0) Bedrest/Nurse Assist IV Therapy: (0) No Gait: (0) Normal/Bedrest/Immobile Mental Status: (0) Oriented to Own Ability Fall Score: 0 Fall Risk Score Definition: No Risk: No action required Datetime: 03/28/2017 19:50 Time of Arrival: 03/28/2017 19:50 EGA: 31.2 Arrived By: Wheelchair Arrived From: Home Chief Complaint: Chest Pain Movement: Present Contractions: Denies/Absent Rupture of Membranes: Denies Vaginal Bleeding: None Vaginal Discharge: Denies Recent Sexual Intercouse: Denies Abdominal Trauma: Not Applicable Patient Complaints: Other Initial Plan: NST then to ER FOR evaluation. Datetime: 03/24/2017 16:20 Stage of : D/C IVFLUIDS AND CATHETER REMOVED WITH INTACT TIP Datetime: 03/24/2017 16:15 Labor Evaluation Frequency: 0 Monitor Mode: External Resting Tone [place]: Relaxed Heart Rate FHR Baseline Rate: 150 Monitor Mode: External US FHR Baseline Changes: No Baseline Change Variability: Moderate 6-25 bpm Accelerations: 10X10 Decelerations: None Category: Category I Datetime: 03/24/2017 16:14 Stage of : Antepartum Temperature Route: Oral Pain Presence: None/Denies Datetime: 03/24/2017 15:09 Bedside Blood Glucose: 106 Datetime: 03/24/2017 15:00 Labor Evaluation Frequency: 0 Monitor Mode: External Resting Tone [place]: Relaxed Heart Rate FHR Baseline Rate: 150 Monitor Mode: External US FHR Baseline Changes: No Baseline Change Variability: Moderate 6-25 bpm Accelerations: 10X10 Decelerations: None Category: Category I Datetime: 03/24/2017 14:43 Labor Evaluation Frequency: 0 Monitor Mode: External Resting Tone [place]: Relaxed Heart Rate FHR Baseline Rate: 140 Monitor Mode: External US FHR Baseline Changes: No Baseline Change Variability: Moderate 6-25 bpm Accelerations: 10X10 Decelerations: None Category: Category I Datetime: 03/24/2017 14:11 Stage of : Antepartum Temperature Route: Oral Labor Evaluation Frequency: 0 Monitor Mode: External Resting Tone [place]: Relaxed Heart Rate FHR Baseline Rate: 140 Monitor Mode: External US FHR Baseline Changes: No Baseline Change Variability: Moderate 6-25 bpm Accelerations: 10X10 Decelerations: None Category: Category I Pain Assessment Pain Scale: 0 Pain Presence: None/Denies Datetime: 03/24/2017 14:06 Stage of : Antepartum Datetime: 03/24/2017 13:15 Labor Evaluation Frequency: 0 Monitor Mode: External Resting Tone [place]: Relaxed Heart Rate FHR Baseline Rate: 150 Monitor Mode: External US FHR Baseline Changes: No Baseline Change Variability: Moderate 6-25 bpm Accelerations: 10X10 Decelerations: None Category: Category I Datetime: 03/24/2017 12:33 Stage of : Antepartum Datetime: 03/24/2017 12:13 Labor Evaluation Frequency: 0 Monitor Mode: External Resting Tone [place]: Relaxed Heart Rate FHR Baseline Rate: LOSS OF INFORMATIONS Monitor Mode: External US Datetime: 03/24/2017 12:12 Stage of : Antepartum Temperature Route: Oral Pain Assessment Pain Scale: 0 Pain Presence: None/Denies Datetime: 03/24/2017 12:06 Stage of : Antepartum Datetime: 03/24/2017 11:30 Labor Evaluation Frequency: 0 Monitor Mode: External Resting Tone [place]: Relaxed Heart Rate FHR Baseline Rate: 150 Monitor Mode: External US FHR Baseline Changes: No Baseline Change Variability: Moderate 6-25 bpm Accelerations: 10X10 Decelerations: None Category: Category I Datetime: 03/24/2017 11:00 Labor Evaluation Frequency: 0 Monitor Mode: External Resting Tone [place]: Relaxed Heart Rate FHR Baseline Rate: 150 (Annotations: POOR SIGNAL) Monitor Mode: External US Datetime: 03/24/2017 10:00 Labor Evaluation Frequency: 0 Monitor Mode: External Resting Tone [place]: Relaxed Heart Rate FHR Baseline Rate: 150 Monitor Mode: External US FHR Baseline Changes: No Baseline Change Variability: Moderate 6-25 bpm Accelerations: 10X10 Decelerations: None Category: Category I Datetime: 03/24/2017 09:00 Labor Evaluation Frequency: 0 Monitor Mode: External Resting Tone [place]: Relaxed Heart Rate FHR Baseline Rate: 150 Monitor Mode: External US FHR Baseline Changes: No Baseline Change Variability: Moderate 6-25 bpm Accelerations: 10X10 Decelerations: None Category: Category I Datetime: 03/24/2017 08:00 Stage of : Antepartum Monitor Mode: External Resting Tone [place]: Relaxed Monitor Mode: External US Datetime: 03/24/2017 07:38 Assessment Type: Ongoing Assessment Maternal Assessment Level of Consciousness: Fully Conscious DTR's/Clonus: DTRs 2+; No Clonus Headache: Denies Blurred Vision: No Respiratory Effort: Unlabored; Regular Rhythm; Equal Expansion Breath Sounds, Left: Clear and Equal Breath Sounds, Right: Clear and Equal Nausea/Vomiting: Denies RUQ Epigastric Pain: Denies Lower Extremities Edema: None Degree: None Upper Extremities Edema: None Facial Edema: None Fall Risk Assessment History of Falling: (0) No Secondary Diagnosis: (0) No Ambulatory Aid: (0) Bedrest/Nurse Assist IV Therapy: (0) No Gait: (0) Normal/Bedrest/Immobile Mental Status: (0) Oriented to Own Ability Fall Score: 0 Fall Risk Score Definition: No Risk: No action required Datetime: 03/24/2017 07:34 Stage of : Antepartum Temperature Route: Oral Pain Assessment Pain Scale: 0 Pain Presence: None/Denies Pain Goal: 0 Datetime: 03/24/2017 07:33 Stage of : Antepartum Datetime: 03/24/2017 07:00 Labor Evaluation Frequency: 0 Monitor Mode: External Resting Tone [place]: Relaxed Heart Rate FHR Baseline Rate: 160 Monitor Mode: External US FHR Baseline Changes: No Baseline Change Variability: Moderate 6-25 bpm Accelerations: 15X15 Decelerations: None Category: Category I Datetime: 03/24/2017 06:25 Stage of : Antepartum Labor Evaluation Frequency: NONE Monitor Mode: External Pattern: Normal: <= 5 Contractions in 10 Minutes Resting Tone [place]: Relaxed Heart Rate FHR Baseline Rate: 145 Monitor Mode: External US Variability: Moderate 6-25 bpm Accelerations: 15X15 Decelerations: None Category: Category I Datetime: 03/24/2017 05:30 Stage of : Antepartum Temperature Route: Oral Labor Evaluation Frequency: none Monitor Mode: External Pattern: Normal: <= 5 Contractions in 10 Minutes Resting Tone [place]: Relaxed Contraction Comments: FHTs lost occasionally due to patient's position. Heart Rate FHR Baseline Rate: 145 Monitor Mode: External US Variability: Moderate 6-25 bpm Accelerations: 15X15 Decelerations: None Category: Category I Pain Assessment Pain Scale: 0 Pain Presence: None/Denies Pain Type: N/A Pain Goal: 0 Pain Relief Measures: Comfort Measures Datetime: 03/24/2017 04:33 Stage of : Antepartum Labor Evaluation Frequency: NONE Monitor Mode: External Pattern: Normal: <= 5 Contractions in 10 Minutes Resting Tone [place]: Relaxed Heart Rate FHR Baseline Rate: 135 Monitor Mode: External US Variability: Moderate 6-25 bpm Accelerations: 15X15 Decelerations: None Category: Category I Pain Assessment Pain Scale: 0 Pain Presence: None/Denies Pain Type: N/A Pain Relief Measures: Comfort Measures Datetime: 03/24/2017 03:37 Stage of : Antepartum Temperature Route: Oral Datetime: 03/24/2017 03:30 Stage of : Antepartum Datetime: 03/24/2017 03:29 Labor Evaluation Frequency: X3 Monitor Mode: External Duration (sec)2399: 40-60 Pattern: Normal: <= 5 Contractions in 10 Minutes Resting Tone [place]: Relaxed Heart Rate FHR Baseline Rate: 135 Monitor Mode: External US Variability: Moderate 6-25 bpm Accelerations: Prolonged Decelerations: None Category: Category I Pain Assessment Pain Scale: 0 Pain Presence: None/Denies Pain Type: N/A Pain Relief Measures: Comfort Measures Datetime: 03/24/2017 02:45 Stage of : Antepartum Monitor Mode: External Pattern: Normal: <= 5 Contractions in 10 Minutes Heart Rate FHR Baseline Rate: 140 Monitor Mode: External US Variability: Moderate 6-25 bpm Accelerations: 15X15 Decelerations: Variable Category: Category II Pain Assessment Pain Scale: 0 Pain Presence: None/Denies Pain Type: N/A Pain Goal: 2 Pain Relief Measures: Comfort Measures Datetime: 03/24/2017 01:40 Stage of : Antepartum Labor Evaluation Frequency: NONE Monitor Mode: External Heart Rate FHR Baseline Rate: 145 Monitor Mode: External US Variability: Moderate 6-25 bpm Accelerations: 15X15 Decelerations: Variable Category: Category II Datetime: 03/24/2017 01:01 Pain Assessment Pain Scale: 4 Pain Presence: Constant Pain Type: Ache Pain Location: Head Pain Goal: 2 Pain Relief Measures: Pain Medication Given Datetime: 03/24/2017 00:58 Stage of : Antepartum Datetime: 03/24/2017 00:41 Fall Score: 20 Fall Risk Score Definition: No Risk: No action required Datetime: 03/24/2017 00:22 EGA: 30.5 Datetime: 03/23/2017 22:44 Monitor Mode: External Contraction Comments: [place] changed Datetime: 03/23/2017 21:33 Fall Score: 0 Fall Risk Score Definition: No Risk: No action required Datetime: 03/23/2017 21:30 EGA: 30.4 Datetime: 02/02/2017 12:40 EGA: 23.4 Datetime: 02/01/2017 06:35 EGA: 23.3 Datetime: 02/01/2017 04:38 Fall Score: 0 Fall Risk Score Definition: No Risk: No action required
== END 2017-04-07 00:40 | disposition home or self-care (01) ==
LOC: OBT 22:42 → L-D 22:43 → OBT 04-07 00:40
PROVIDERS: ATTEND Obstetrics & Gynecology
DX: O26.893 Other specified pregnancy related conditions, third trimester (principal); R42 Dizziness and giddiness; G44.209 Tension-type headache, unspecified, not intractable; Z3A.33 33 weeks gestation of pregnancy
CPT/HCPCS: 81001; Z7500; Z7610; 81003; G0463

== ENCOUNTER 2017-05-09 02:50 | Outpatient (CLI) | payer OTHER ==
[~2017-05-09] VITALS: Ht 162.6 cm; Wt 88.8 kg
[2017-05-09 03:31] VITALS: BP 121/57; PULSE 108; RESP 20; Ht 162.6 cm; Wt 88.8 kg
--- NOTE | 2017-05-09 07:19 | QN ---
Documentation Comment Laborist DOMINIC/Adrian 26 y.o. with an IUP at 37w 6d c/o UC's. Pt reports them as q 5 minutes. No bleeding or leaking. +FM. Pt states her 1st 2 babies were born near their due date but the last one was born 3 weeks early. PMHx: gestational diabetes, diet controlled. PSHx: none. NKDA. BP 121/57 T=98.4 NST:baseline 150 bpm with accels to 180 bpm. No decels. UC's q 4 to 9 minutes. CX: thick/2 cm/-3 and no change after walking x 2 hours. A: IUP at 37w 6d. Early labor/false labor. P: D/C pt home. Labor precautions given. MARIBEL MEDINA MD May 09, 2017 07:19
--- NOTE | 2017-05-09 07:22 | TRIAGE ---
OB Triage Datetime Report Generated by CPN: 05/09/2017 07:21 Datetime: 05/09/2017 05:48 Pain Assessment Pain Scale: 6 Pain Presence: Intermittent Pain Type: Cramping Pain Location: Abdomen Vaginal Exam Dilatation (cms): 2.0 Effacement (%): 50 Station: -3 Exam By: M. Tungate RN Vaginal Bleeding: None Cervix, Consistency: Soft Cervix, Position: Posterior Datetime: 05/09/2017 05:01 Pain Assessment Pain Scale: 6 Pain Presence: Intermittent Pain Type: Cramping Pain Location: Abdomen Datetime: 05/09/2017 05:00 Monitor Mode: External (Annotations: Re-applied) Monitor Mode: External US (Annotations: Re-applied) Datetime: 05/09/2017 03:51 Labor Evaluation Frequency: 3-10 Monitor Mode: External Duration (sec)2399: 60-120 Quality: Mild Pattern: Normal: <= 5 Contractions in 10 Minutes Resting Tone [place]: Relaxed Heart Rate FHR Baseline Rate: 150 Monitor Mode: External US Variability: Moderate 6-25 bpm Accelerations: 15X15 Decelerations: None Category: Category I Datetime: 05/09/2017 03:27 Stage of : Labor Datetime: 05/09/2017 03:20 Time of Arrival: 05/09/2017 02:50 EGA: 37.6 Arrived By: Ambulatory Arrived From: Home Chief Complaint: Contractions Movement: Present Contractions: Irregular Time Contractions Began: 05/08/2017 10:00 Contractions: Every 3-10 minutes Rupture of Membranes: Denies Vaginal Bleeding: None Vaginal Discharge: Denies Recent Sexual Intercouse: Denies Abdominal Trauma: Not Applicable Patient Complaints: Contractions Time Provider Notified: 05/09/2017 03:27 Provider Notified: Dr. Plunkett Initial Plan: CEFM Datetime: 05/09/2017 03:18 Stage of : OB Triage Assessment Type: Triage Maternal Assessment Level of Consciousness: Fully Conscious DTR's/Clonus: DTRs 2+; No Clonus Headache: Denies Blurred Vision: No Respiratory Effort: Unlabored; Regular Rhythm; Equal Expansion Breath Sounds, Left: Clear and Equal Breath Sounds, Right: Clear and Equal Nausea/Vomiting: Denies RUQ Epigastric Pain: Denies Lower Extremities Edema: None Degree: None Upper Extremities Edema: None Degree: None Facial Edema: None Temperature Route: Oral Fall Risk Assessment History of Falling: (0) No Secondary Diagnosis: (0) No Ambulatory Aid: (0) Bedrest/Nurse Assist IV Therapy: (0) No Gait: (0) Normal/Bedrest/Immobile Mental Status: (0) Oriented to Own Ability Fall Score: 0 Fall Risk Score Definition: No Risk: No action required Pain Assessment Pain Scale: 6 Pain Presence: Intermittent Pain Type: Cramping Pain Location: Abdomen Pain Goal: 4 Datetime: 05/09/2017 03:13 Vaginal Exam Dilatation (cms): 2.0 Effacement (%): 0 Station: -3 Exam By: Artemio Fletcher RN Vaginal Bleeding: None Cervix, Consistency: Moderate Cervix, Position: Posterior Presentation 'A': Cephalic Datetime: 05/09/2017 03:07 Monitor Mode: External (Annotations: Applied) Resting Tone [place]: Relaxed Monitor Mode: External US (Annotations: Applied) Datetime: 04/06/2017 23:58 Stage of : OB Triage Monitor Mode: External Quality: Mild Pattern: Normal: <= 5 Contractions in 10 Minutes Resting Tone [place]: Relaxed Heart Rate FHR Baseline Rate: 150 Monitor Mode: External US FHR Baseline Changes: No Baseline Change Variability: Moderate 6-25 bpm Accelerations: 15X15 Decelerations: Variable Category: Category II Datetime: 04/06/2017 23:16 EGA: 33.1 Datetime: 04/06/2017 23:00 Stage of : OB Triage Heart Rate FHR Baseline Rate: 150 Monitor Mode: External US Variability: Moderate 6-25 bpm Accelerations: 15X15 Decelerations: None Category: Category I Datetime: 03/28/2017 20:00 EGA: 31.6 Fall Score: 0 Fall Risk Score Definition: No Risk: No action required Datetime: 03/28/2017 19:50 EGA: 31.2 Datetime: 03/24/2017 07:38 Fall Score: 0 Fall Risk Score Definition: No Risk: No action required Datetime: 03/24/2017 00:41 Fall Score: 20 Fall Risk Score Definition: No Risk: No action required Datetime: 03/24/2017 00:22 EGA: 30.5 Datetime: 03/23/2017 21:33 Fall Score: 0 Fall Risk Score Definition: No Risk: No action required Datetime: 03/23/2017 21:30 EGA: 30.4 Datetime: 02/02/2017 12:40 EGA: 23.4 Datetime: 02/01/2017 06:35 EGA: 23.3 Datetime: 02/01/2017 04:38 Fall Score: 0 Fall Risk Score Definition: No Risk: No action required
== END 2017-05-09 07:10 | disposition home or self-care (01) ==
LOC: OBT 02:50 → L-D 02:50 → OBT 07:10
PROVIDERS: ATTEND Obstetrics & Gynecology
DX: O47.1 False labor at or after 37 completed weeks of gestation (principal); O62.9 Abnormality of forces of labor, unspecified; Z3A.37 37 weeks gestation of pregnancy

== ENCOUNTER 2017-05-25 16:24 | Inpatient (IN) | payer OTHER ==
[~2017-05-25] VITALS: Ht 152.4 cm; Wt 89.1 kg
--- NOTE | 2017-05-25 16:26 | NSTRPT ---
NST Information Datetime Report Generated by CPN: 05/25/2017 16:26 Datetime: 05/20/2017 08:55 NST Information EGA: 39.3 Test Number: 5 Time on Monitor: 05/20/2017 09:19 Time off Monitor: 05/20/2017 09:53 NST Duration (Min): 34 Reason for NST: Diabetes Mellitus; Other Reason for NST Other: A1DM Test and Monitor Explained: Monitor Explained; Test Explained; Verbalized Understanding Pulse: 83 Resp: 18 SBP: 105 DBP: 52 Test Evaluation NST Interventions: Reposition Patient Patient States Movement: Present Contraction Frequency: X2(deneis) FHR Baseline : 140 Variability: Moderate 6-25bpm Decelerations: None FHR Category: Category I NST Results: Reactive Comments: To u/s. AIMEE 12.7cm. CEPHALIC. FBS 101. 1000-Pt home undelivered with labor precautions, kick count instructions reviewed and follo w up NST appt. given. States understanding and denies futher questions at this time. Electronically Signed By E-Signature: with User ID: [id number] Datetime: 05/16/2017 10:31 NST Information EGA: 38.6 NST Duration (Min): 23 Datetime: 05/12/2017 10:12 NST Information EGA: 38.2 NST Duration (Min): 40 Datetime: 05/09/2017 13:05 NST Information EGA: 37.6 NST Duration (Min): 23 Datetime: 05/05/2017 14:06 NST Information EGA: 37.2 NST Duration (Min): 25
[2017-05-25 16:43] VITALS: Ht 152.4 cm; Wt 89.1 kg
[2017-05-25 16:44] VITALS: BP 125/64; PULSE 97; RESP 18
--- NOTE | 2017-05-25 17:22 | RADRPT ---
PROCEDURE: US OB biophysical profile. CLINICAL INDICATION: decreased movements, pain TECHNIQUE: Multiple sonographic images of the pelvis were obtained. The images were reviewed on a PACS workstation. COMPARISON: 03/23/2017 FINDINGS: There is a single viable intrauterine gestation. Cardiac activity is present with 152 beats per min [place]. There is a vertex presentation. The placenta is anterior. There is no evidence of placental abruption. There is a normal amount of amniotic fluid with an AIMEE = 17.2 cm. Biophysical profile: movement 2/2 tone 2/2. breathing 2/2 AIMEE 2/2 Total 06/28 RPTAT: AA . IMPRESSION: Normal biophysical profile. . .Jersey Roberts MD, MD Date Time Electronically viewed and signed by .Jersey Roberts MD, MD on 05/25/2017 17:22 .S/
--- NOTE | 2017-05-25 17:24 | RADRPT ---
PROCEDURE: US OB. CLINICAL INDICATION: Size and dates , pain TECHNIQUE: Multiple sonographic images of the pelvis and gravid uterus were obtained. The images were reviewed on a PACS workstation. COMPARISON: 03/23/2017 FINDINGS: There is a single viable intrauterine gestation. Cardiac activity is present with 168 beats per min [place]. There is a vertex presentation. The placenta is anterior. There is no evidence of placental abruption. There is a normal amount of amniotic fluid with an AIMEE = 17.2 cm. Measurements were made in order to determine age. The results are as follows: BPD =9.8 cm HC =34.4 cm AC =35.8 cm FL =7.6 cm Estimated gestational age of approximately 39 weeks and 4 days based on ultrasound measurements. Clinical age: 39 weeks and 4 days. The estimated date of delivery is 05/28/17, based on ultrasound measurements. The EFW = 3830 g, 74%, based on LMP age. RPTAT: AA IMPRESSION: Single viable intrauterine gestation of approximately 39 weeks and 4 days based on ultrasound measu rements. .Jersey Roberts MD, MD Date Time Electronically viewed and signed by .Jersey Roberts MD, MD on 05/25/2017 17:23 .S/
[2017-05-25] MEDS ORDERED: OXYTOCIN 30 UNITS/LR 500 ML IV PRN (18:30)
[2017-05-25] MEDS ORDERED: OXYTOCIN 30 UNITS/LR 500 ML IV SCH ×2 (18:30)
[2017-05-25] MEDS ORDERED: IBUPROFEN 600 MG TAB PO PRN (18:30)
[2017-05-25] MEDS ORDERED: BUTORPHANOL 2 MG INJ IV PRN (18:30)
[2017-05-25] MEDS ORDERED: LACTATED RINGER'S 1,000 ML IV PRN (18:30)
[2017-05-25] MEDS ORDERED: MISOPROSTOL 200 MCG TAB PR PRN (18:30)
[2017-05-25] MEDS ORDERED: CARBOPROST 250 MCG INJ IM PRN (18:30)
[2017-05-25] MEDS ORDERED: LIDOCAINE 1% (MPF) 30 ML INJ INJ PRN (18:30)
[2017-05-25] MEDS ORDERED: METHYLERGONOVINE 0.2 MG INJ IM PRN (18:30)
[2017-05-25] MEDS: LACTATED RINGER'S 1,000 ML IV SCH ×2 (18:50→20:39)
[2017-05-25 18:58] LABS: ADD SCAN DIFF NO
[2017-05-25 19:02] LABS: BASOPHILS % 0.3 % (0.0-2.0); EOSINOPHILS % 0.3 % (0.0-7.0); HEMATOCRIT 36.6 % (37.0-47.0); HEMOGLOBIN 12.2 g/dl (12.0-16.0); LYMPHOCYTES # 2.3 10^3/ul (0.8-2.9); LYMPHOCYTES % 19.6 % (15.0-51.0); MEAN CORPUSCULAR HEMOGLOBIN 27.9 pg (29.0-33.0); MEAN CORPUSCULAR HGB CONC 33.3 g/dl (32.0-37.0); MEAN CORPUSCULAR VOLUME 83.8 fl (82.0-101.0); MEAN PLATELET VOLUME 11.7 fl (7.4-10.4); MONOCYTE # 0.6 10^3/ul (0.3-0.9); MONOCYTES % 5.3 % (0.0-11.0); NEUTROPHIL # 8.8 10^3/ul (1.6-7.5); NEUTROPHILS % 73.8 % (39.0-77.0); PLATELET COUNT 199 10^3/UL (140-415); RED BLOOD COUNT 4.37 10^6/ul (4.20-5.40); RED CELL DISTRIBUTION WIDTH 14.8 % (11.5-14.5); WHITE BLOOD COUNT 11.9 10^3/ul (4.8-10.8)
[2017-05-25 19:15] LABS: INR 0.88; PROTIME 11.9 Sec (12.2-14.2); PT RATIO 0.9
[2017-05-25 19:16] LABS: PARTIAL THROMBOPLASTIN TIME 27.1 Sec (25.0-35.0)
[2017-05-25] MEDS ORDERED: FENTAnyl 2MCG/ML-ROPIV 0.2% 100 ML ONE (22:55)
[2017-05-26] MEDS: LACTATED RINGER'S 1,000 ML IV SCH ×2 (00:59→04:10)
[2017-05-26] MEDS ORDERED: NALOXONE (0.4 MG/ML) INJ IV PRN (06:30)
[2017-05-26] MEDS ORDERED: FENTAnyl 2MCG/ML-ROPIV 0.2% 100 ML BAG EPI SCH (06:30)
[2017-05-26] MEDS ORDERED: LACTATED RINGER'S 1,000 ML IV* SCH (06:33)
--- NOTE | 2017-05-26 06:33 | HP ---
Date/Time of Note Date/Time of Note DATE: 05/26/17 TIME: 06:32 OB - History Hx of Present Free Text/Dictation Patient presented in active early labor. She was noted to be 3 cm dilated. Chief Complaint: labor pain Estimated Due Date: May 28, 2017 : 4 Para: 3 Spontaneous : 0 Therapeutic : 0 Care: Good Care Obstetrical Complications: Gestational Diabetes Other Concerns: GDM A1, diet controlled Past Family/Social History * Past Medical, Surgical, Family and Obstetric Histories reviewed from chart. OB Admission Exam Vital Signs Vital Signs Vital Signs Date Time Temp Pulse Resp B/P Pulse Ox O2 Delivery O2 Flow Rate FiO2 05/25/17 16:44 98.9 97 18 125/64 97 Room Air Physical Exam HEENT: WNL Heart: Rhythm Normal Abdomen: WNL Cervical Dilatation: 3cm Effacement: 50% Station: -3 Membranes: Intact Heart Rate: 140's Accelerations: Accelerations Present Decelerations: No Decelerations Contractions on Admission: < 5 Minutes Apart Intensity: Moderate Last 72 hourBlood Glucose Bedside Glucose - 72 Hours Test 05/25/17 20:33 05/25/17 23:35 05/26/17 01:49 Bedside Glucose 74mg/dL (70-220) 84mg/dL (70-220) 84mg/dL (70-220) Last 72 hours Lab Results CBC & BMP 05/25/17 18:30 OB Assessment/Plan Reason for admission: active labor Other Assessment: IUP at 39 weeks and 5 days GDM A1. Presented in active labor GBS negative Plan: Expectant Management Other plan: Anticipate CHUY MARQUES MD May 26, 2017 06:33
--- NOTE | 2017-05-26 06:42 | LDN ---
Date/Time of Note Date/Time of Note DATE: 05/26/17 TIME: 06:39 Delivery Summary Called for delivery Tracey was feeling pushing Weeks of Gestation 39 weeks and 5 days Placenta Delivered: Spontaneously Meconium: none Episiotomy: No Perineal laceration: 1 Laceration repair: first degree perineal laceration repaired with 3-0 Vicryl Anesthesia type: Epidural Estimated blood loss: 200 Sponge & Needle done & correct: Yes All needle counts correct: Yes Any foreign bodies felt in the: No Problems: Delivery Information Sex Sex: female Apgars 1 Minute: 8 5 Minute: 9 Suctioning Nose & mouth suctioned at tommy: No Delee suction performed: Yes Umbilical Cord Cord presentations: nuchal cord Nuchal cord present X: 1 Cord Blood was obtained: Yes Mother & Baby Disposition Disposition Nuchal cord 1 noted at the time of delivery Placenta delivered intact. Fundus firm after the delivery of the placenta. CHUY MARQUES MD May 26, 2017 06:41
[2017-05-26 06:45] VITALS: BP 112/58; PULSE 95; RESP 18
[2017-05-26] MEDS ORDERED: WITCH HAZEL/GLYCERIN PAD PR PRN (07:00)
[2017-05-26] MEDS ORDERED: METHYLERGONOVINE 0.2 MG TAB PO PRN (07:00)
[2017-05-26] MEDS ORDERED: OXYTOCIN 30 UNITS/LR 500 ML IV PRN (07:00)
[2017-05-26] MEDS ORDERED: MISOPROSTOL 200 MCG TAB PR PRN (07:00)
[2017-05-26] MEDS ORDERED: ZOLPIDEM 5 MG TAB PO PRN (07:00)
[2017-05-26] MEDS ORDERED: METHYLERGONOVINE 0.2 MG INJ IM PRN (07:00)
[2017-05-26] MEDS ORDERED: DIPHENHYDRAMINE 25 MG CAP PO PRN (07:00)
[2017-05-26] MEDS ORDERED: LANOLIN 7 GM TUBE TOP PRN (07:00)
[2017-05-26] MEDS ORDERED: CARBOPROST 250 MCG INJ IM PRN (07:00)
[2017-05-26] MEDS ORDERED: ACETAMINOPHEN 325 MG TAB PO PRN (07:00)
[2017-05-26] MEDS ORDERED: ONDANSETRON 4 MG INJ IV PRN (07:00)
[2017-05-26 08:00] VITALS: BP 108/61; PULSE 109; RESP 20
[2017-05-26] MEDS: SENNA/DOCUSATE NA (8.6MG/50MG) TAB PO SCH ×2 (09:54→20:23)
[2017-05-26] MEDS: ACETAMINOPHEN 325 MG TAB PO PRN ×2 (09:55→20:23)
[2017-05-26 12:15] VITALS: BP 102/62; PULSE 84; RESP 18
[2017-05-26] MEDS: IBUPROFEN 600 MG TAB PO SCH ×3 (12:47→23:47)
[2017-05-26 16:00] VITALS: BP 100/68; PULSE 92; RESP 19
[2017-05-26] MEDS: ACCU-CHEK XX SCH ×2 (17:00→20:23)
[2017-05-26 20:00] VITALS: BP 101/71; PULSE 95; RESP 18
[2017-05-27] VITALS: BP 104/75; PULSE 75; RESP 18
[2017-05-27 04:00] VITALS: BP 107/74; PULSE 84; RESP 19
[2017-05-27] MEDS: IBUPROFEN 600 MG TAB PO SCH ×4 (06:06→23:32)
[2017-05-27 07:30] VITALS: BP 108/59; PULSE 85; RESP 19
[2017-05-27] MEDS: ACCU-CHEK XX SCH ×4 (07:30→20:17)
[2017-05-27 08:05] LABS: HEMATOCRIT 33.5 % (37.0-47.0); HEMOGLOBIN 10.9 g/dl (12.0-16.0)
[2017-05-27] MEDS: SENNA/DOCUSATE NA (8.6MG/50MG) TAB PO SCH ×2 (09:00→21:30)
[2017-05-27 16:15] VITALS: BP 127/69; PULSE 96; RESP 20
[2017-05-27 20:05] VITALS: BP 121/53; PULSE 93; RESP 17
[2017-05-28 04:10] VITALS: BP 111/63; PULSE 88; RESP 17
[2017-05-28] MEDS: IBUPROFEN 600 MG TAB PO SCH ×2 (05:14→12:28)
[2017-05-28] MEDS: ACCU-CHEK XX SCH ×3 (07:30→13:50)
[2017-05-28 08:30] VITALS: BP 126/78; PULSE 89; RESP 18
[2017-05-28] MEDS: SENNA/DOCUSATE NA (8.6MG/50MG) TAB PO SCH (09:00)
[2017-05-28] MEDS ORDERED: DIPHTH/TET/ACEL PERTUSS (ADULT) 0.5 ML VIAL IM* ONE (09:00)
[2017-05-28] MEDS ORDERED: MEASLES,MUMPS,RUBELLA VACCINE INJ SC* ONE (09:00)
--- NOTE | 2017-05-28 13:29 | DS ---
Date/Time of Note Date/Time of Note DATE: 05/28/17 TIME: 13:24 Obstetrical Discharge Record Final Diagnosis Final Diagnosis: Term delivered Other Final Diagnosis Post C Section day 3 Doing Well Afebrile Ambulatory Chest Clear Breasts are soft , Nipples are intact Abdomen is soft Fundus is firm Moderate amount of lochia Incision is clean ,No evidence of infection No calf tenderness No ankle edema New born is doing well, [place] Laboratory Tests Test 05/27/17 15:08 05/27/17 20:17 05/28/17 08:08 05/28/17 10:48 Bedside Glucose 99mg/dL 122mg/dL 74mg/dL 87mg/dL Current Medications Medications (Trade) Dose Ordered Sig/Prabhjot Route PRN Reason Start Time Stop Time Status Last Admin Dose Admin Lactated Ringer's (Lr) 1,000 ml @ 125 mls/hr Q8H IV 05/25/17 18:30 05/26/17 06:36 DC 05/26/17 04:10 Butorphanol Tartrate (Stadol) 1 mg Q2H PRN IV PAIN 05/25/17 18:30 05/26/17 06:36 DC Lidocaine 30 ml 30 ml ONCE PRN INJ EPISIOTOMY/TEARING 05/25/17 18:30 05/26/17 06:36 DC Oxytocin/Lactated Ringer's 500 ml @ 125 mls/hr ONCE -MAY REPEAT X1 IV 05/25/17 18:30 05/26/17 06:36 DC 05/26/17 04:44 Oxytocin/Lactated Ringer's 500 ml @ 125 mls/hr ONCE IV 05/25/17 18:30 05/26/17 06:36 DC 05/26/17 05:00 Ibuprofen 600 mg 600 mg ONCE PRN PO Mild Pain (Pain Score 1-3) 05/25/17 18:30 05/26/17 06:36 DC Lactated Ringer's 1,000 ml @ 2,000 mls/hr Q30M PRN IV PRE-EPIDURAL BOLUS 05/25/17 18:30 05/26/17 06:36 DC Oxytocin/Lactated Ringer's 500 ml @ 0 mls/hr ONCE PRN IV For Hemorrhage Management 05/25/17 18:30 05/26/17 06:36 DC Methylergonovine Maleate (Methergine) 0.2 mg ONCE PRN IM VAGINAL BLEEDING 05/25/17 18:30 05/26/17 06:36 DC Carboprost Tromethamine (Hemabate) 250 mcg ONCE PRN IM VAGINAL BLEEDING 05/25/17 18:30 05/26/17 06:36 DC Misoprostol 1000 mcg 1,000 mcg ONCE PRN AK VAGINAL BLEEDING 05/25/17 18:30 05/26/17 06:36 DC Fentanyl/ Ropivacaine 100 ml @ ud STK-MED ONCE .ROUTE 05/25/17 22:55 05/25/17 22:56 DC Naloxone HCl (Narcan) 0.1 mg Q2M PRN IV FOR RESP RATE 8 OR LESS 05/26/17 06:30 05/26/17 06:36 DC Fentanyl/ Ropivacaine 100 ml 100 ml EPIDURAL INFUSION EPI 05/26/17 06:30 05/26/17 06:36 DC Lactated Ringer's (Lr) 1,000 ml @ 125 mls/hr Q8H IV* 05/26/17 06:33 05/26/17 15:03 DC 05/26/17 09:20 Methylergonovine Maleate (Methergine) 0.2 mg Q6H PRN PO VAGINAL BLEEDING 05/26/17 07:00 Ibuprofen (Motrin) 600 mg Q6 PO 05/26/17 12:00 05/28/17 12:28 Acetaminophen (Tylenol Tab) 650 mg Q4H PRN PO PAIN LEVEL 1-5 05/26/17 07:00 05/26/17 20:23 Ondansetron HCl (Zofran Inj) 4 mg Q6H PRN IV NAUSEA AND/OR VOMITING 05/26/17 07:00 Diphenhydramine HCl (Benadryl) 25 mg Q6H PRN PO PRURITUS 05/26/17 07:00 Zolpidem Tartrate (Ambien) 5 mg QHS PRN PO INSOMNIA 05/26/17 07:00 Senna/Docusate Sodium (Senokot-S) 1 tab BID PO 05/26/17 09:00 05/27/17 21:30 [place]/ Glycerin (Tucks Pads) 1 pad BEDSIDE MEDICATION PRN AK HEMORRHOID/EPISIOTMY PAIN 05/26/17 07:00 05/26/17 09:55 Lanolin (Cvf-F-Clblwb) 1 applic BEDSIDE MEDICATION PRN TOP BEDSIDE FOR PACHECO TO NIPPLES 05/26/17 07:00 05/26/17 09:55 Measles/Mumps/ Rubella Vaccine Live (Mmr Ii Vaccine) 0.5 ml ONCE ONCE SC* 05/28/17 09:00 05/28/17 09:01 DC Diphtheria/ Tetanus/Acell Pertussis (Adacel) 0.5 ml ONCE ONCE IM* 05/28/17 09:00 05/28/17 09:01 DC Acetaminophen 650 mg 650 mg Q4H PRN PO ELEVATED TEMPERATURE 05/26/17 07:00 Oxytocin/Lactated Ringer's 500 ml @ 0 mls/hr ONCE PRN IV For Hemorrhage Management 05/26/17 07:00 Methylergonovine Maleate (Methergine) 0.2 mg ONCE PRN IM VAGINAL BLEEDING 05/26/17 07:00 Carboprost Tromethamine (Hemabate) 250 mcg ONCE PRN IM VAGINAL BLEEDING 05/26/17 07:00 Misoprostol (Cytotec) 1,000 mcg ONCE PRN [place] VAGINAL BLEEDING 05/26/17 07:00 Diagnostic Test (Pha) (Accu-Chek) 1 ea FBSPP XX 05/26/17 13:50 05/28/17 10:50 st feeding Section Section: Primary Demise Demise: Intrapartum Condition on Discharge Physical Assessment Voiding: Yes Bowel Movement: Yes Breast: Soft, non-tender Fundus: Firm Abdomen and Incision: healing well [place] to be removed in office in 4 days. Calf Tenderness: No Patient Condition: Good CARIE HANDY MD May 28, 2017 13:29 Demise Demise: Intrapartum Condition on Discharge Physical Assessment Voiding: Yes Bowel Movement: Yes Breast: Soft, non-tender Fundus: Firm Abdomen and Incision: healing well [place] to be removed in office in 4 days. Calf Tenderness: No Patient Condition: Good CARIE HANDY MD May 28, 2017 13:29
== END 2017-05-28 15:45 | disposition home or self-care (01) | DRG 775 ==
LOC: OBT 16:24 → L-D 16:25 → OBT 18:10 → PP1 05-26 06:42
PROVIDERS: ADMIT Obstetrics & Gynecology; ATTEND Obstetrics & Gynecology
PROC: 10E0XZZ Delivery of Products of Conception, External Approach (ICD-10-PCS; principal; 2017-05-26)
PROC: 0HQ9XZZ Repair Perineum Skin, External Approach (ICD-10-PCS; 2017-05-26)
DX: O69.81X0 Labor and delivery complicated by cord around neck, without compression, not applicable or unspecified (principal); E66.01 Morbid (severe) obesity due to excess calories; O70.0 First degree perineal laceration during delivery; O99.214 Obesity complicating childbirth; Z68.38 Body mass index [BMI] 38.0-38.9, adult; O24.419 Gestational diabetes mellitus in pregnancy, unspecified control; Z3A.39 39 weeks gestation of pregnancy; Z37.0 Single live birth
CPT/HCPCS: 62319; 76815; 76818; 82947; 82962; 85014; 85018; 85025; 85610; 85730; 86592; 86900; 86901; 87340; 90715; 99464; G0463; J2590; J3010; J7120

== ENCOUNTER 2017-06-02 23:26 | Emergency (ER) | payer OTHER ==
[~2017-06-02] VITALS: Ht 162.6 cm; Wt 81.5 kg
[2017-06-02 23:37] VITALS: Ht 162.6 cm; Wt 81.5 kg
--- NOTE | 2017-06-03 00:25 | ERD ---
ER Documentation Chief Complaint Date/Time DATE: 06/03/17 TIME: 00:16 Chief Complaint s/p vag delivery 1 wk ago; abd pain now; denies N/V/diarrhea HPI 26-year-old female presents to emergency department for complaints of lower abdominal pain that started today. Patient had a vaginal delivery 1 week ago, has continuous bleeding. Patient describes the pain as cramping pain 4/10 scale , is worse upon walking. Patient has been having chest pain on and off for the last 6 months, started to have the pain again today, sharp pain 4/10 scale, intermittent. Patient has been evaluated for this multiple times before, had laboratory testing done and EKGs done, so to be normal. Patient started to have the pain again today. ROS All systems reviewed and are negative except as per history of present illness. Medications Home Meds Active Scripts Cephalexin* (Keflex*) 500 Mg Capsule, 500 MG PO QID for 10 Days, CAP Prov:JONI MENDOZA NP 06/03/17 Acetaminophen* (Tylophen*) 500 Mg Capsule, 1 CAP PO Q6H Y for PAIN AND OR ELEVATED TEMP, #20 CAP Prov:JONI MENDOZA [employer] 06/03/17 Reported Medications [none] Unknown Strength No Conflict Check 06/03/17 Allergies Allergies: Coded Allergies: No Known Allergy (Unverified , 05/09/17) PMhx/Soc Medical and Surgical Hx: pt denies Medical Hx, pt denies Surgical Hx History of Surgery: Yes (csection) Anesthesia Reaction: No Hx Neurological Disorder: No Hx Respiratory Disorders: No Hx Cardiac Disorders: No Hx Psychiatric Problems: Yes (Anxiety) Hx Miscellaneous Medical Probl: Yes (UTI) Hx Alcohol Use: No Hx Substance Use: No Hx Tobacco Use: No FmHx Family History: No coronary disease, No diabetes, No other Physical Exam Vitals Vital Signs Date Time Temp Pulse Resp B/P Pulse Ox O2 Delivery O2 Flow Rate FiO2 06/03/17 03:17 98.0 70 20 120/70 98 Room Air 06/02/17 23:37 96.9 109 20 128/81 98 Physical Exam GENERAL: The patient is well developed and appropriate for usual state of health, in no apparent distress. CHEST: Clear to auscultation bilaterally. There are no rales, wheezes or rhonchi. HEART: Regular rate and rhythm. No murmurs, clicks, rubs or gallops. No S3 or S4. ABDOMEN: Soft, nontender and nondistended. Good bowel sounds. No rebound or guarding. No gross peritonitis. No gross organomegaly or masses. No Holland sign or McBurney point tenderness. BACK: No midline or flank tenderness. EXTREMITIES: Equal pulses bilaterally. There is no peripheral clubbing, cyanosis or edema. No focal swelling or erythema. Full range of motion. Grossly neurovascularly intact. NEURO: Alert and oriented. Cranial nerves 2-12 intact. Motor strength in all 4 extremities with 5/5 strength. Sensation grossly intact. Normal speech and gait. SKIN: There is no apparent rash or petechia. The skin is warm and dry. HEMATOLOGIC AND LYMPHATIC: There is no evidence of excessive bruising or lymphedema. No gross cervical, axillary, or inguinal lymphadenopathy. Result Diagram: 06/03/17 0106 06/03/17 0106 Results 24 hrs Laboratory Tests Test 06/03/17 01:00 06/03/17 01:06 Urine Color RED Urine Clarity TURBID Urine pH 6.0 Urine Specific [place] 1.024 Urine Ketones TRACEmg/dL Urine Nitrite NEGATIVEmg/dL Urine Bilirubin NEGATIVEmg/dL Urine Urobilinogen NEGATIVEmg/dL Urine Leukocyte Esterase 2+Mitzi/ul Urine Microscopic RBC > 182/HPF Urine Microscopic WBC > 182/HPF Urine Squamous Epithelial Cells FEW/HPF Urine Bacteria FEW/HPF Urine Hemoglobin 3+mg/dL Urine Glucose NEGATIVEmg/dL Urine Total Protein 2+mg/dl White Blood Count 12.310^3/ul Red Blood Count 4.8810^6/ul Hemoglobin 13.3g/dl Hematocrit 41.7% Mean Corpuscular Volume 85.5fl Mean Corpuscular Hemoglobin 27.3pg Mean Corpuscular Hemoglobin Concent 31.9g/dl Red Cell Distribution Width 14.8% Platelet Count 68066^3/UL Mean Platelet Volume 10.7fl Neutrophils % 63.9% Lymphocytes % 26.5% Monocytes % 6.8% Eosinophils % 1.7% Basophils % 0.4% Nucleated Red Blood Cells % 0.0/100WBC Neutrophils # 7.810^3/ul Lymphocytes # 3.310^3/ul Monocytes # 0.810^3/ul Eosinophils # 0.210^3/ul Basophils # 0.110^3/ul Nucleated Red Blood Cells # 0.010^3/ul Sodium Level 136mmol/L Potassium Level 3.5mmol/L Chloride Level 101mmol/L Carbon Dioxide Level 27mmol/L Anion Gap 12 Blood Urea Nitrogen 19mg/dl Creatinine 0.74mg/dl Glucose Level 87mg/dl Calcium Level 9.9mg/dl Total Bilirubin 0.1mg/dl Direct Bilirubin 0.00mg/dl Indirect Bilirubin 0.1mg/dl Aspartate Amino Transf (AST/SGOT) 15IU/L Alanine Aminotransferase (ALT/SGPT) 42IU/L Alkaline Phosphatase 157IU/L Total Protein 7.7g/dl Albumin 4.5g/dl Globulin 3.20g/dl Albumin/Globulin Ratio 1.40 Lipase 97U/L Current Medications Medications (Trade) Dose Ordered Sig/Prabhjot Route PRN Reason Start Time Stop Time Status Last Admin Dose Admin Ceftriaxone Sodium (Rocephin) 1 gm ONCE ONCE IM 06/03/17 02:30 06/03/17 02:31 DC 06/03/17 02:49 EKG was done, read by me and is normal sinus rhythm at a rate of 96, normal axis , there is no ST changes or changes in the EKG that indicates any cardiac emergencies at this time. Patient's EKG was also reviewed by . Impression : no acute findings on EKG PROCEDURE: Ultrasound of the pelvis. CLINICAL INDICATION: Pain TECHNIQUE: Transabdominal and transvaginal ultrasound of the pelvis was performed to better evaluate the pelvic viscera. COMPARISON: No pertinent prior examinations were submitted for comparison. FINDINGS: LAST MENSTRUAL PERIOD: Unavailable UTERUS: Size: 11.4 x 7.7 x 9.5 cm. The uterine texture is homogeneous. The endometrium measures 4.3 mm which is within normal limits. RIGHT OVARY: The ovary is not visualized. No adnexal masses are seen. LEFT OVARY: The ovary is not visualized. No adnexal masses are seen. CUL-DE-SAC: There is no abnormal free fluid. IMPRESSION: Normal endometrium. No ovaries not visualized. RPTAT: HIKT .Leonard Ventura MD, MD Date Time Electronically viewed and signed by .Leonard Ventura MD, MD on 06/03/2017 01:14 .T/ CC: JONI MENDOZA [employer] PROCEDURE: XR Chest. CLINICAL INDICATION: Abdominal pain. TECHNIQUE: Single frontal view of the chest. COMPARISON: None. FINDINGS: The cardiomediastinal silhouette is within normal limits. The lungs are clear. No signs of pleural fluid or pneumothorax are seen. The osseous structures and soft tissues are unremarkable. IMPRESSION: No evidence for active cardiopulmonary disease. RPTAT: [facility] Physician Dolores Date Time Electronically viewed and signed by Physician Dolores on 06/03/2017 00:39 RS/ CC: JONI MENDOZA [employer] Procedures/MDM Medical Decision Making: Patient symptoms of lower abdominal pain most likely consistent with urinary tract infection. No retained products of conception noted. No suspicion for pyelonephritis. There is low suspicion for abdominal emergencies at this time. Patients abdominal exam is normal at this time. Patients radiology exam does not show any abdominal emergencies at this time. There is low suspicion for appendicitis, cholecystitis, abdominal aortic aneurysms or peritonitis at this time. There is low suspicion for sepsis. Patient appears well and is hemodynamically stable. Patient's chest pain nonspecific at this time, possible anxiety related, possible musculoskeletal pain. Upon reassessing heart rate, he was normal. Low suspicion for pulmonary embolism. Oxygenation is normal. There is low suspicion for cardiopulmonary emergencies at this time. Patient has low risk factors. EKG is normal, there is no changes in the EKG that indicates cardiac emergencies. Chest X-ray does not show cardiopulmonary emergencies at this time. There is low suspicion for aortic aneurysm, myocardial infarction, pneumothorax, pleural effusion, pulmonary embolism, or any other cardiopulmonary emergencies at this time. Cardiac markers are normal. Disposition: Home. Condition: Stable Prescription Keflex, Tylenol Instructions: Patient is advised to take medications as prescribed. Patient is advised to rest, increase fluid intake and do good perineal hygiene. Patient is advised that if symptoms are worse, severe abdominal pain, uncontrolled vomiting , high fever, severe flank pain, worst signs and symptoms, to return to the emergency department immediately. Otherwise, patient can follow up with primary care doctor in 5-7 days. Departure Diagnosis: Primary Impression: UTI (urinary tract infection) Urinary tract infection type: acute cystitis Hematuria presence: with hematuria Qualified Code: N30.01 - Acute cystitis with hematuria Additional Impression: Atypical chest pain Condition: Stable Patient Instructions: Chest Pain, Uncertain Cause, Understanding Urinary Tract Infections (UTIs) Additional Instructions: : Patient is advised to take medications as prescribed. Patient is advised to rest, increase fluid intake and do good perineal hygiene. Patient is advised that if symptoms are worse, severe abdominal pain, uncontrolled vomiting, high fever, severe flank pain, worst signs and symptoms, to return to the emergency department immediately. Otherwise, patient can follow up with primary care doctor in 5-7 days. JONI MENDOZA NP Jun 03, 2017 00:25
--- NOTE | 2017-06-03 00:40 | RADRPT ---
PROCEDURE: XR Chest. CLINICAL INDICATION: Abdominal pain. TECHNIQUE: Single frontal view of the chest. COMPARISON: None. FINDINGS: The cardiomediastinal silhouette is within normal limits. The lungs are clear. No signs of pleural f luid or pneumothorax are seen. The osseous structures and soft tissues are unremarkable. IMPRESSION: No evidence for active cardiopulmonary disease. RPTAT: [facility] Physician Dolores Date Time Electronically viewed and signed by Terell Aldridge Physician on 06/03/2017 00:39 RS/
--- NOTE | 2017-06-03 01:15 | RADRPT ---
PROCEDURE: Ultrasound of the pelvis. CLINICAL INDICATION: Pain TECHNIQUE: Transabdominal and transvaginal ultrasound of the pelvis was performed to better evalua te the pelvic viscera. COMPARISON: No pertinent prior examinations were submitted for comparison. FINDINGS: LAST MENSTRUAL PERIOD: Unavailable UTERUS: Size: 11.4 x 7.7 x 9.5 cm. The uterine texture is homogeneous. The endometrium measures 4.3 mm which is within normal limits. RIGHT OVARY: The ovary is not visualized. No adnexal masses are seen. LEFT OVARY: The ovary is not visualized. No adnexal masses are seen. CUL-DE-SAC: There is no abnormal free fluid. IMPRESSION: Normal endometrium. No ovaries not visualized. RPTAT: HIKT .Leonard Ventura MD, Date Time Electronically viewed and signed by .Leonard Ventura MD, on 06/03/2017 01:14 .T/
[2017-06-03 01:42] LABS: ADD SCAN DIFF NO
[2017-06-03 01:45] LABS: BASOPHIL # 0.1 10^3/ul (0.0-0.1); BASOPHILS % 0.4 % (0.0-2.0); EOSINOPHILS # 0.2 10^3/ul (0.0-0.5); EOSINOPHILS % 1.7 % (0.0-7.0); HEMATOCRIT 41.7 % (37.0-47.0); HEMOGLOBIN 13.3 g/dl (12.0-16.0); LYMPHOCYTES # 3.3 10^3/ul (0.8-2.9); LYMPHOCYTES % 26.5 % (15.0-51.0); MEAN CORPUSCULAR HEMOGLOBIN 27.3 pg (29.0-33.0); MEAN CORPUSCULAR HGB CONC 31.9 g/dl (32.0-37.0); MEAN CORPUSCULAR VOLUME 85.5 fl (82.0-101.0); MEAN PLATELET VOLUME 10.7 fl (7.4-10.4); MONOCYTE # 0.8 10^3/ul (0.3-0.9); MONOCYTES % 6.8 % (0.0-11.0); NEUTROPHIL # 7.8 10^3/ul (1.6-7.5); NEUTROPHILS % 63.9 % (39.0-77.0); PLATELET COUNT 336 10^3/UL (140-415); RED BLOOD COUNT 4.88 10^6/ul (4.20-5.40); RED CELL DISTRIBUTION WIDTH 14.8 % (11.5-14.5); WHITE BLOOD COUNT 12.3 10^3/ul (4.8-10.8)
[2017-06-03 02:07] LABS: ALBUMIN 4.5 g/dl (3.3-4.9); ALBUMIN/GLOBULIN RATIO 1.4; BILIRUBIN,INDIRECT 0.1 mg/dl (0-1.1); BILIRUBIN,TOTAL 0.1 mg/dl (0.2-1.3); CALCIUM 9.9 mg/dl (8.4-10.2); CREATININE 0.74 mg/dl (0.44-1.00); POTASSIUM 3.5 mmol/L (3.5-5.1); TOTAL PROTEIN 7.7 g/dl (6.1-8.1)
[2017-06-03 02:14] LABS: ADD UMIC YES; UR ASCORBIC ACID NEGATIVE (NEGATIVE); UR BACTERIA FEW /HPF (NONE SEEN); UR BILIRUBIN (Dip) NEGATIVE (NEGATIVE); UR BLOOD (Dip) 3+ mg/dL (NEGATIVE); UR CLARITY TURBID (CLEAR); UR COLOR RED (YELLOW); UR GLUCOSE (Dip) NEGATIVE (NEGATIVE); UR KETONES (Dip) TRACE mg/dL (NEGATIVE); UR LEUKOCYTE ESTERASE (Dip) 2+ Leu/ul (NEGATIVE); UR NITRITE (Dip) NEGATIVE (NEGATIVE); UR RBC > 182 /HPF (0-5); UR SPECIFIC GRAVITY (Dip) 1.024 (1.003-1.030); UR SQUAMOUS EPITHELIAL CELL FEW /HPF (FEW); UR TOTAL PROTEIN (Dip) 2+ mg/dl (NEGATIVE); UR UROBILINOGEN (Dip) NEGATIVE (NEGATIVE)
[2017-06-03] MEDS ORDERED: CEFTRIAXONE 1 GM INJ IM ONE (02:30)
[2017-06-03] MEDS ORDERED: ACET500C5 PO (02:30)
[2017-06-03] MEDS ORDERED: CEPH-443 PO (02:30)
[2017-06-03 03:17] VITALS: BP 120/70; PULSE 70; RESP 20; TEMP 98
== END 2017-06-03 03:19 | disposition home or self-care (01) ==
LOC: FTE 23:26
DX: N30.01 Acute cystitis with hematuria (principal); R07.89 Other chest pain
CPT/HCPCS: 36415; 71010; 76856; 80053; 81001; 83690; 85025; 93005; 96372; J0696; Z7502

== ENCOUNTER 2017-07-06 20:50 | Emergency (ER) | payer OTHER ==
[~2017-07-06] VITALS: Ht 162.6 cm; Wt 82.0 kg
[~2017-07-06 20:50] MED LIST changes: +ACET500C5 PO; +BACTDS PO; +CEPH-443 PO; +CHLO4TAB PO; +IBUP-1542 PO; +NITR-58 PO; +NPH10OT RIGHT EAR; +PREN1TAB49 PO
[2017-07-06 20:52] VITALS: Ht 162.6 cm; Wt 82.0 kg
[2017-07-06] MEDS ORDERED: IBUP-1542 PO (21:28)
[2017-07-06] MEDS ORDERED: IBUPROFEN 600 MG TAB PO ONE (21:30)
[2017-07-06 21:38] VITALS: BP 123/78; PULSE 95; RESP 19; TEMP 98.1
--- NOTE | 2017-07-06 23:44 | ERD ---
ER Documentation Chief Complaint Date/Time DATE: 07/06/17 TIME: 23:44 Chief Complaint ANDRES/SINUS PRESSURE [id number] WORSE TONIGHT HPI Patient is a 26-year-old female who presents to the emergency department with concerns of pressure behind her nasal bridge 9 month. Patient states that the pain is episodic in nature. Patient states the pain comes and goes. Patient denies any 10 out of 10 severe, sudden, thunderclap headache. Patient states she has had this pain in the past and had a negative CT scan. Per chart review patient was seen here back in November 2016 and had a negative CT scan the brain. Patient denies any fevers, chills, photophobia, phonophobia, nausea, vomiting, blurry vision, neck pain, neck stiffness or LOC. Patient denies any nasal congestion, rhinorrhea, sore throat, ear pain. She denies taking any medication for her pain. She denies any chest pain, shortness of breath, diaphoresis or LOC. Patient is currently breast-feeding. ROS All systems reviewed and are negative except as per history of present illness. Medications Home Meds Active Scripts Ibuprofen* (Motrin*) 600 Mg Tab, 600 MG PO Q6, #30 TAB Prov:JOHANNA PRICE PA-C 07/06/17 Cephalexin* (Keflex*) 500 Mg Capsule, 500 MG PO QID for 10 Days, CAP Prov:JONI MENDOZA NP 06/03/17 Acetaminophen* (Tylophen*) 500 Mg Capsule, 1 CAP PO Q6H Y for PAIN AND OR ELEVATED TEMP, #20 CAP Prov:JONI MENDOZA [employer] PROGRAMMER 06/03/17 Reported Medications [none] Unknown Strength No Conflict Check 06/03/17 Allergies Allergies: Coded Allergies: No Known Allergy (Unverified , 07/06/17) PMhx/Soc History of Surgery: Yes (csection) Anesthesia Reaction: No Hx Neurological Disorder: No Hx Respiratory Disorders: No Hx Cardiac Disorders: No Hx Psychiatric Problems: Yes (Anxiety) Hx Miscellaneous Medical Probl: Yes (UTI) Hx Alcohol Use: No Hx Substance Use: No Hx Tobacco Use: No Smoking Status: Never smoker Physical Exam Vitals Vital Signs Date Time Temp Pulse Resp B/P Pulse Ox O2 Delivery O2 Flow Rate FiO2 07/06/17 21:38 98.1 95 19 123/78 99 Room Air 07/06/17 20:52 98.9 108 18 110/57 100 Physical Exam GENERAL: Well-developed, well-nourished female. Appears in no acute distress. Speaking in full sentences. HEAD: Normocephalic, atraumatic. Nontender to palpation of bilateral temporal regions. EYES: Pupils are equally reactive bilaterally. EOMs grossly intact. No conjunctival erythema. ENT: Moist mucous membranes. No uvula deviation. No kissing tonsils. Tender to palpation over the nasal bridge. NECK: Supple. No meningismus. Normal range of motion of the neck. LUNG: Clear to auscultation bilaterally. No rhonchi, wheezing, rales or coarse breath sounds. HEART: Regular rate and rhythm. No murmurs, rubs or gallops. EXTREMITIES: Equal pulses bilaterally. No peripheral clubbing, cyanosis or edema. No unilateral leg swelling. NEUROLOGIC: Alert and oriented x3, cooperative. Mood and affect appropriate to situation. Cranial nerves II through XII are grossly intact. Normal speech. Motor exam: 5/5 strength in upper and lower extremities. Sensory exam: Sensation intact to light touch on all four extremities. Steady gait. No pronator drift. SKIN: Normal color. Warm and dry. No rashes or lesions. Results 24 hrs Current Medications Medications (Trade) Dose Ordered Sig/Prabhjot Route PRN Reason Start Time Stop Time Status Last Admin Dose Admin Ibuprofen (Motrin) 600 mg ONCE ONCE PO 07/06/17 21:30 07/06/17 21:31 DC 07/06/17 21:27 Procedures/MDM MEDICAL DECISION MAKING: This is a 26-year-old female who presents emergency department for concerns of pressure behind her nasal bridge. Patient states she has had symptoms for last 9 months. Patient denies any medication. Patient has been seen here on numerous occasions. Patient had a CT brain which was negative back in November 2016. Vital signs were reviewed. Patient was afebrile. Patient is not hypoxic. Patient denies any 10 out of 10 severe, sudden, thunderclap headache. Patient denied any fevers, neck stiffness, jaw claudication, visual changes or LOC. Patient denies any sinus congestion or rhinorrhea. Full neurological exam was normal. She was given ibuprofen here in the emergency department she did report improvement in her symptoms. Given these findings, the patient's presentation is most consistent with headache. Low suspicion for intracranial hemorrhage, meningitis, encephalitis, temporal arteritis, benign intracranial hypertension, intracranial mass, glaucoma, preeclampsia, cluster headache. PRESCRIPTIONS: Ibuprofen DISCHARGE: At this time, patient is stable for discharge and outpatient management. I have encouraged the patient to hydrate well. I have instructed the patient to follow- up with his/her primary care physician in 1-2 days. If symptoms persist, patient may need to see a specialist for further examinations and testing. I have instructed the patient to promptly return to the ER at any time for any new or worsening symptoms including increased increased pain, fever, nausea, vomiting, numbness, neck stiffness, visual changes, weakness or LOC. The patient and/or family expressed understanding of and agreement with this plan. All questions were answered. Home care instructions were provided. Disclaimer: Inadvertent spelling and grammatical errors are likely due to EHR/ dictation software use and do not reflect on the overall quality of patient care. Also, please note that the electronic time recorded on this note does not necessarily reflect the actual time of the patient encounter. Departure Diagnosis: Primary Impression: Headache Headache type: unspecified Headache chronicity pattern: unspecified pattern Intractability: not intractable Qualified Code: R51 - Nonintractable headache, unspecified chronicity pattern, unspecified headache type Condition: Stable Patient Instructions: Self-Care for Headaches Referrals: PHILLIP CARLOS (PCP) Additional Instructions: Call your primary care doctor TOMORROW for an appointment during the next 1-2 days.See the doctor sooner or return here if your condition worsens before your appointment time. JOHANNA PRICE PA-C Jul 06, 2017 23:44
== END 2017-07-06 21:38 | disposition home or self-care (01) ==
LOC: FTE 20:50
DX: R51 Headache (principal)
CPT/HCPCS: Z7502; Z7610; 99283

== ENCOUNTER 2017-07-11 18:02 | Emergency (ER) | payer OTHER ==
[~2017-07-11] VITALS: Ht 157.5 cm; Wt 81.5 kg
[2017-07-11 18:07] VITALS: Ht 157.5 cm; Wt 81.5 kg
[2017-07-11] MEDS ORDERED: DICY10CA60 PO (18:37)
[2017-07-11] MEDS ORDERED: IBUP-1542 PO (18:37)
[2017-07-11] MEDS ORDERED: AZIT500T3 PO (18:37)
--- NOTE | 2017-07-11 18:46 | ERD ---
ER Documentation Chief Complaint Date/Time DATE: 07/11/17 TIME: 18:44 Chief Complaint Complains of diarrea x 1 week HPI 26-year-old female presents here in emergency department for diarrhea episodes for 1 week. Patient just came back from [place]. Patient's son is sick with the same symptoms. Patient does not have any blurriness or black stool. Patient does not have any vomiting. Patient does not have any abdominal pain. Patient does not have hematuria or dysuria. Patient did not take any medications to symptoms. ROS All systems reviewed and are negative except as per history of present illness. Medications Home Meds Active Scripts Ibuprofen* (Motrin*) 600 Mg Tab, 600 MG PO Q6H Y for PAIN AND OR ELEVATED TEMP, #30 TAB Prov:JONI MENDOZA NP 07/11/17 Dicyclomine Hcl* (Bentyl*) 10 Mg Capsule, 20 MG PO QID, #20 CAP Prov:JONI MENDOZA NP 07/11/17 Azithromycin* (Zithromax*) 500 Mg Tablet, 500 MG PO DAILY for 3 Days, TAB Prov:JONI MENDOZA NP 07/11/17 Ibuprofen* (Motrin*) 600 Mg Tab, 600 MG PO Q6, #30 TAB Prov:JOHANNA PRICE PA-C 07/06/17 Cephalexin* (Keflex*) 500 Mg Capsule, 500 MG PO QID for 10 Days, CAP Prov:JONI MENDOZA NP 06/03/17 Acetaminophen* (Tylophen*) 500 Mg Capsule, 1 CAP PO Q6H Y for PAIN AND OR ELEVATED TEMP, #20 CAP Prov:JONI MENDOZA [facility] 06/03/17 Reported Medications [none] Unknown Strength No Conflict Check 06/03/17 Allergies Allergies: Coded Allergies: No Known Allergy (Unverified , 07/06/17) PMhx/Soc History of Surgery: Yes (csection) Anesthesia Reaction: No Hx Neurological Disorder: No Hx Respiratory Disorders: No Hx Cardiac Disorders: No Hx Psychiatric Problems: Yes (Anxiety) Hx Miscellaneous Medical Probl: Yes (UTI) Hx Alcohol Use: No Hx Substance Use: No Hx Tobacco Use: No Smoking Status: Never smoker FmHx Family History: No coronary disease, No diabetes, No other Physical Exam Vitals Vital Signs Date Time Temp Pulse Resp B/P Pulse Ox O2 Delivery O2 Flow Rate FiO2 07/11/17 18:07 99.2 89 20 128/79 98 Physical Exam GENERAL: The patient is well developed and appropriate for usual state of health, in no apparent distress. CHEST: Clear to auscultation bilaterally. There are no rales, wheezes or rhonchi. HEART: Regular rate and rhythm. No murmurs, clicks, rubs or gallops. No S3 or S4. ABDOMEN: Soft, nontender and nondistended. Hyperactive bowel sounds. No rebound or guarding. No gross peritonitis. No gross organomegaly or masses. No Holland sign or McBurney point tenderness. BACK: No midline or flank tenderness. EXTREMITIES: Equal pulses bilaterally. There is no peripheral clubbing, cyanosis or edema. No focal swelling or erythema. Full range of motion. Grossly neurovascularly intact. NEURO: Alert and oriented. Cranial nerves 2-12 intact. Motor strength in all 4 extremities with 5/5 strength. Sensation grossly intact. Normal speech and gait. SKIN: There is no apparent rash or petechia. The skin is warm and dry. HEMATOLOGIC AND LYMPHATIC: There is no evidence of excessive bruising or lymphedema. No gross cervical, axillary, or inguinal lymphadenopathy. Procedures/MDM Medical Decision Making: Patient's symptoms of diarrhea most likely consistent which traveler's diarrhea, no symptoms of dehydration. No vomiting. Patient does not complain of abdominal pain. There is low suspicion for abdominal emergencies at this time. Patients abdominal exam is normal at this time. Radiology exams and laboratory testing not indicated at this time. There is low suspicion for appendicitis, cholecystitis, abdominal aortic aneurysms or peritonitis at this time. There is low suspicion for sepsis. Patient appears well and is hemodynamically stable. Disposition: Home. Condition: Stable Prescription azithromycin, Bentyl, ibuprofen Instructions: Patient is advised to take medications as prescribed. Patient is advised to rest, increase fluid intake and do brat diet for next 1-2 days and progress as tolerated. Patient is advised that if symptoms are worse, severe abdominal pain, uncontrolled vomiting, high fever, severe flank pain, worst signs and symptoms, to return to the emergency department immediately. Otherwise, patient can follow up with primary care doctor in 5-7 days. Departure Diagnosis: Primary Impression: Travelers' diarrhea Condition: Stable Patient Instructions: Traveler's Diarrhea (6Y-Adult) JONI MENDOZA NP Jul 11, 2017 18:46
== END 2017-07-11 18:57 | disposition home or self-care (01) ==
LOC: FTE 18:02
DX: R19.7 Diarrhea, unspecified (principal)
CPT/HCPCS: 99284

== ENCOUNTER 2018-02-19 03:59 | Emergency (ER) | END 2018-02-19 06:20 | disposition home or self-care (01) ==

== ENCOUNTER 2018-02-19 11:57 | Emergency (ER) | END 2018-02-19 14:42 | disposition home or self-care (01) ==

== ENCOUNTER 2018-04-25 11:37 | Emergency (ER) | END 2018-04-25 13:35 | disposition home or self-care (01) ==

== ENCOUNTER 2018-06-13 23:30 | Emergency (ER) | END 2018-06-14 01:55 | disposition home or self-care (01) ==

== ENCOUNTER 2019-01-06 01:46 | Inpatient (IN) | payer OTHER ==
[~2019-01-06] VITALS: Ht 162.6 cm; Wt 91.0 kg
[~2019-01-06 01:46] MED LIST changes: +AZIT500T3 PO; -BACTDS PO; +BEN50 PO; -CHLO4TAB PO; +DICY10CA40 PO; +FIORICET PO; +LORA1TAB PO; +METO10TA92 PO; -NITR-58 PO; -NPH10OT RIGHT EAR; +OMEP20CA16 PO; -PREN1TAB49 PO; -PREN1TAB62 PO
[2019-01-06 02:00] VITALS: Ht 162.6 cm; Wt 91.0 kg
[2019-01-06] MEDS ORDERED: PREN1TAB13 PO (02:00)
[2019-01-06 02:01] VITALS: BP 129/84; PULSE 107; RESP 20
[2019-01-06] MEDS ORDERED: LACTATED RINGER'S 1,000 ML IV PRN (02:25)
[2019-01-06] MEDS ORDERED: METHYLERGONOVINE 0.2 MG INJ IM PRN (02:30)
[2019-01-06] MEDS ORDERED: OXYTOCIN 30 UNITS/LR 500 ML IV PRN ×2 (02:30→11:30)
[2019-01-06] MEDS ORDERED: BUTORPHANOL 2 MG INJ IV PRN (02:30)
[2019-01-06] MEDS ORDERED: MISOPROSTOL 200 MCG TAB PR PRN ×2 (02:30→11:30)
[2019-01-06] MEDS ORDERED: CARBOPROST 250 MCG INJ IM PRN ×2 (02:30→11:30)
[2019-01-06] MEDS ORDERED: IBUPROFEN 600 MG TAB PO PRN ×2 (02:30→11:30)
[2019-01-06] MEDS ORDERED: OXYTOCIN 30 UNITS/LR 500 ML IV SCH ×3 (02:30→11:17)
[2019-01-06] MEDS ORDERED: LIDOCAINE 1% (MPF) 30 ML INJ INJ PRN (02:30)
[2019-01-06] MEDS: LACTATED RINGER'S 1,000 ML IV SCH ×3 (03:29→18:25)
--- NOTE | 2019-01-06 05:25 | PREAC ---
Date/Time of Note Date/Time of Note DATE: 01/06/19 TIME: 05:23 Anesthesia Eval and Record Evaluation Time Pre-Procedure Interview DATE: 01/06/19 TIME: 05: Age 28 Sex female NPO: 8 hrs Preoperative diagnosis labor pain Planned procedure labor epidural Past Medical History Past Medical History: Includes GI: GERD Heme: Anemia Psych: Depression, Anxiety Surgery & Anesthesia Issues No known issue Meds Anticoagulation: No Beta Destiney within 24 hr: No Reason Beta Destiney not given: Pt. not on B-Destiney Active Scripts Diphenhydramine Hcl* (Benadryl*) 50 Mg Cap, 50 MG PO Q6, #20 CAP Prov:JONI MENDOZA NP 06/14/18 Metoclopramide* (Reglan*) 10 Mg Tablet, 10 MG PO Q6 PRN for NAUSEA AND/OR VOMITING, #10 TAB Prov:JONI MENDOZA NP 06/14/18 Acetaminophen* (Tylophen*) 500 Mg Capsule, 1 CAP PO Q6H PRN for PAIN AND OR ELEVATED TEMP, #20 CAP Prov:JONI MENDOZA NP 06/14/18 Omeprazole* (Omeprazole*) 20 Mg Capsule.dr, 20 MG PO DAILY, #14 Prov:LETYOSROBINSONSTVUS AAric DO 04/25/18 Lorazepam* (Lorazepam*) 1 Mg Tablet, 1 MG PO QHS PRN for INSOMNIA, #15 TAB Prov:LEKKOSAPOSTOLOS A. DO 04/25/18 Acetamin/Butalbital/Caffeine* (Fioricet*) [id number] Tab, 1 TAB PO Q6H PRN for PAIN, #30 TAB Prov:DEMETRIA CANNON PA-C 02/19/18 Diphenhydramine Hcl* (Benadryl*) 50 Mg Cap, 50 MG PO QHS PRN for ins, #30 CAP Prov:JULY HAYES PA-C 02/19/18 Ibuprofen* (Motrin*) 600 Mg Tab, 600 MG PO Q6H PRN for PAIN AND OR ELEVATED TEMP, #30 TAB Prov:JONI MENDOZA NP 07/11/17 Dicyclomine HCl (Dicyclomine HCl) 10 Mg Capsule, 20 MG PO QID, #20 CAP Prov:JONI MENDOZA TOWER ATTENDANT 07/11/17 Azithromycin* (Zithromax*) 500 Mg Tablet, 500 MG PO DAILY for 3 Days, TAB Prov:JONI MENDOZA TOWER ATTENDANT 07/11/17 Ibuprofen* (Motrin*) 600 Mg Tab, 600 MG PO Q6, #30 TAB Prov:JOHANNA PRICE PA-C 07/06/17 Cephalexin* (Keflex*) 500 Mg Capsule, 500 MG PO QID for 10 Days, CAP Prov:JONI MENDOZA TOWER ATTENDANT 06/03/17 Acetaminophen* (Tylophen*) 500 Mg Capsule, 1 CAP PO Q6H PRN for PAIN AND OR ELEVATED TEMP, #20 CAP Prov:JONI MENDOZA TOWER ATTENDANT 06/03/17 Reported Medications Pnv95/Ferrous Fumarate/FA ( Vitamins Tablet) 1 Each Tablet, 1 EACH PO DAILY, TAB 01/06/19 [none] Unknown Strength No Conflict Check 06/03/17 Current Medications Lactated Ringer's 1,000 ml @ 125 mls/hr Q8H IV Last administered on 01/06/19at 03:29; Admin Dose 125 MLS/HR; Start 01/06/19 at 02:25 Butorphanol Tartrate (Stadol) 2 mg Q2H PRN IV .PAIN; Start 01/06/19 at 02:30 Lidocaine (Xylocaine 1% (Mpf)) 30 ml ONCE PRN INJ .EPISIOTOMY; Start 01/06/19 at 02:30 Oxytocin/Lactated Ringer's 500 ml @ 500 mls/hr ONCE POST IV ; Start 01/06/19 at 02:30 Oxytocin/Lactated Ringer's 500 ml @ 125 mls/hr POST IV ; Start 01/06/19 at 02:30 Ibuprofen (Motrin) 600 mg ONCE PRN PO .PAIN 1-5; Start 01/06/19 at 02:30 Lactated Ringer's 1,000 ml @ 2,000 mls/hr Q30M PRN IV .ANESTHESIA Last administered on 01/06/19at 03:29; Admin Dose 2,000 MLS/HR; Start 01/06/19 at 02:25 Oxytocin/Lactated Ringer's 500 ml @ 0 mls/hr ONCE PRN IV .VAGINAL BLEEDING; Start 01/06/19 at 02:30 Methylergonovine Maleate (Methergine) 0.2 mg ONCE PRN IM .VAGINAL BLEEDING; Start 01/06/19 at 02:30 Carboprost Tromethamine (Hemabate) 250 mcg ONCE PRN IM .VAGINAL BLEEDING; Start 01/06/19 at 02:30 Misoprostol (Cytotec) 1,000 mcg ONCE PRN IA .VAGINAL BLEEDING; Start 01/06/19 at 02:30 Meds reviewed: Yes Allergies Coded Allergies: No Known Allergy (Unverified , 01/06/19) Allergies Reviewed: Yes Labs/Studies Labs Reviewed: Reviewed by anesthesiologist Result Diagram: 01/06/19 0250 Laboratory Tests 01/06/19 02:50 Blood Bank Test 01/06/19 02:50 Antibody Screen NEGATIVE Blood Type B POSITIVE Rh Immune Globulin Candidate NO test: Positive Pre-procedure Exam Last vitals Vital Signs Date Temp Pulse Resp B/P (MAP) Pulse Ox O2 O2 Flow FiO2 Time Delivery Rate 01/06/19 98.2 107 20 129/84 Room Air 02:01 (99) Airway: Adequate mouth opening, Adequate thyromental dist Mallampati: Mallampati III Teeth: Normal Lung: Normal Heart: Normal ASA Physical Status ASA physical status: 2 Emergency: None Planned Anesthetic Neuraxial: Epidural Planned Pain Management Epidural, Parenteral pain med, Other neuraxial med Pre-operative Attestations Prior to commencing anesthesia and surgery, the patient was re-evaluated, there was verification of: *The patient's identity *The results of appropriate recent lab work and preoperative vital signs *The above evaluation not changing prior to induction *Anesthetic plan, risk benefits, alternative and complications discussed with patient/family; questions answered; patient/family understands, accepts and wishes to proceed. ADAM WADE MD Jan 06, 2019 05:25
[2019-01-06] MEDS ORDERED: FENTAnyl 2MCG/ML-ROPIV 0.2% 100 ML BAG EPI SCH (05:30)
[2019-01-06] MEDS ORDERED: DIPHENHYDRAMINE 50 MG INJ IV PRN (05:30)
[2019-01-06] MEDS ORDERED: NALOXONE (0.4 MG/ML) INJ IV PRN (05:30)
[2019-01-06] MEDS ORDERED: HYDROmorphONE 0.5 MG/0.5 ML SYG IV PRN ×2 (05:30)
[2019-01-06] MEDS ORDERED: KETOROLAC 30 MG INJ IV PRN (05:30)
[2019-01-06] MEDS ORDERED: ONDANSETRON 4 MG INJ IV PRN ×2 (05:30→11:30)
[2019-01-06] MEDS ORDERED: ZOLPIDEM 5 MG TAB PO PRN ×2 (05:30→11:30)
--- NOTE | 2019-01-06 06:27 | TRIAGE ---
OB Triage Datetime Report Generated by CPN: 01/06/2019 06:26 Datetime: 01/06/2019 06:00 Labor Evaluation Frequency: 2-3 Monitor Mode: External Duration (sec)2399: 60-90 Pattern: Normal: <= 5 Contractions in 10 Minutes Heart Rate FHR Baseline Rate: 145 Monitor Mode: External US FHR Baseline Changes: No Baseline Change Variability: Moderate 6-25 bpm Accelerations: 15X15 Decelerations: None Datetime: 01/06/2019 05:12 Pain Assessment Comments: PATIENT NOW REQUESTING EPIDURAL Datetime: 01/06/2019 05:00 Monitor Mode: External Pattern: Normal: <= 5 Contractions in 10 Minutes Heart Rate FHR Baseline Rate: 145 Monitor Mode: External US FHR Baseline Changes: No Baseline Change Variability: Moderate 6-25 bpm Accelerations: 15X15 Datetime: 01/06/2019 04:00 Labor Evaluation Frequency: 3-6 Monitor Mode: External Duration (sec)2399: 60-80 Pattern: Normal: <= 5 Contractions in 10 Minutes Heart Rate FHR Baseline Rate: 135 Monitor Mode: External US FHR Baseline Changes: No Baseline Change Variability: Moderate 6-25 bpm Datetime: 01/06/2019 03:42 Vaginal Exam Dilatation (cms): 4.5 Effacement (%): 60 Station: -3 Exam By: mildred rn Cervix, Consistency: Moderate Presentation 'A': Cephalic Datetime: 01/06/2019 03:25 Stage of : Labor Labor Evaluation Frequency: 2-8 Monitor Mode: External Duration (sec)2399: 40-110 Quality: Moderate Pattern: Normal: <= 5 Contractions in 10 Minutes Resting Tone [place]: Relaxed Heart Rate FHR Baseline Rate: 140 Monitor Mode: External US FHR Baseline Changes: No Baseline Change Variability: Moderate 6-25 bpm Accelerations: 15X15 Decelerations: None Datetime: 01/06/2019 02:59 Assessment Type: Admission Assessment Vaginal Bleeding: None Maternal Assessment Level of Consciousness: Fully Conscious DTR's/Clonus: DTRs 2+; No Clonus Headache: Denies Blurred Vision: No Respiratory Effort: Unlabored; Regular Rhythm; Equal Expansion Breath Sounds, Left: Clear and Equal Breath Sounds, Right: Clear and Equal Nausea/Vomiting: Denies RUQ Epigastric Pain: Denies Facial Edema: None Fall Risk Assessment History of Falling: (0) No Secondary Diagnosis: (0) No Ambulatory Aid: (0) Bedrest/Nurse Assist Gait: (0) Normal/Bedrest/Immobile Mental Status: (0) Oriented to Own Ability Datetime: 01/06/2019 02:55 Stage of : Labor Labor Evaluation Frequency: 3-6.5 Monitor Mode: External Duration (sec)2399: 40-110 Quality: Moderate Pattern: Normal: <= 5 Contractions in 10 Minutes Resting Tone [place]: Relaxed Heart Rate FHR Baseline Rate: 140 Monitor Mode: External US FHR Baseline Changes: No Baseline Change Variability: Moderate 6-25 bpm Accelerations: 15X15 Decelerations: None Category: Category I Datetime: 01/06/2019 02:26 Labor Evaluation Frequency: Irregular Monitor Mode: External Duration (sec)2399: 40-80 Quality: Moderate Pattern: Normal: <= 5 Contractions in 10 Minutes Resting Tone [place]: Relaxed Heart Rate FHR Baseline Rate: 140 Monitor Mode: External US FHR Baseline Changes: No Baseline Change Variability: Moderate 6-25 bpm Accelerations: 15X15 Decelerations: Variable Category: Category II Datetime: 01/06/2019 02:12 Stage of : OB Triage Datetime: 01/06/2019 02:09 Stage of : OB Triage Vaginal Exam Dilatation (cms): 4.0 Effacement (%): 60 Station: -3 Exam By: KASSI Silverman Membrane Status: Intact Vaginal Bleeding: None Cervix, Consistency: Soft Cervix, Position: Posterior Datetime: 01/06/2019 02:04 Time of Arrival: 01/06/2019 02:59 EGA: 38.2 Arrived By: Wheelchair Arrived From: Home Datetime: 01/06/2019 01:57 Time of Arrival: 01/06/2019 01:35 Arrived By: Ambulatory Arrived From: Home Chief Complaint: UCs Movement: Present Contractions: Regular Time Contractions Began: 01/06/2019 22:56 Contractions: q5-7mins Rupture of Membranes: Denies Vaginal Bleeding: None Vaginal Discharge: Present Abdominal Trauma: Not Applicable Patient Complaints: Contractions; Cramping Time Provider Notified: 01/06/2019 02:24 Provider Notified: Initial Plan: Monitor for uc's Datetime: 01/06/2019 01:55 Stage of : OB Triage Assessment Type: Triage Maternal Assessment Level of Consciousness: Fully Conscious DTR's/Clonus: DTRs 2+; No Clonus Headache: Denies Blurred Vision: No Respiratory Effort: Unlabored; Regular Rhythm; Equal Expansion Breath Sounds, Left: Clear and Equal Breath Sounds, Right: Clear and Equal Nausea/Vomiting: Denies RUQ Epigastric Pain: Denies Lower Extremities Edema: None Degree: None Upper Extremities Edema: None Degree: None Facial Edema: None Temperature Route: Oral Fall Risk Assessment History of Falling: (0) No Secondary Diagnosis: (0) No Ambulatory Aid: (0) Bedrest/Nurse Assist IV Therapy: (0) No Gait: (0) Normal/Bedrest/Immobile Mental Status: (0) Oriented to Own Ability Fall Score: 0 Fall Risk Score Definition: No Risk: No action required Heart Rate FHR Baseline Rate: 140 Monitor Mode: External US Pain Assessment Pain Scale: 5 Pain Presence: Intermittent Pain Type: Cramping Pain Location: Abdomen Pain Relief Measures: Comfort Measures
--- NOTE | 2019-01-06 10:35 | HP ---
Date/Time of Note Date/Time of Note DATE: 01/06/19 TIME: 10:34 OB - History Hx of Present Free Text/Dictation I was called for delivery when arrived to the Shift. Patient admitted last night by primary attending for labor management. Care: Good Care Other Concerns: 28 years old with IUP at 38 weeks and [address] care [address] Larson, presented in labor. She was 4/60/-3, vertex. GBS Negative. Has history of depression and anxiety. was on meds. Has not been taking it. Does not recall what meds she was taking. Had history of GDM in the past 2 pregnancies. noted to have elevated one hour PG, but she missed 3 hour GTT. Past Family/Social History * Past Medical, Surgical, Family and Obstetric Histories reviewed from chart. Blood Type: B+ Rubella: immune RPR/VDRL: Negative GBS Status: Negative HBsAG: Negative OB Admission Exam Vital Signs Vital Signs Vital Signs Date Temp Pulse Resp B/P (MAP) Pulse Ox O2 O2 Flow FiO2 Time Delivery Rate 01/06/19 98.2 107 20 129/84 Room Air 02:01 (99) Physical Exam HEENT: WNL Lungs: Clear Abdomen: WNL Reflexes: Normal Cervical Dilatation: 4cm Effacement: 75% Station: -3 Membranes: Intact Accelerations: Accelerations Present Decelerations: No Decelerations Varibility: Moderate Contractions on Admission: < 5 Minutes Apart Intensity: Moderate Last 72 hours Lab Results CBC & BMP 01/06/19 02:50 OB Assessment/Plan Other Assessment: IUP at 38 weeks and 5 days In labor GBS Negative Note that this history has been taken from the recrods and nursing note after I was called for delivery Patient had been managed intrapartum by her primary attending and was signed out for delivery FHT: Cat 1 - 2 during labor course has received epidural CHUY MARQUES MD Jan 06, 2019 10:35
[2019-01-06 10:40] VITALS: BP 124/87; PULSE 97; RESP 20
--- NOTE | 2019-01-06 10:41 | LDN ---
Date/Time of Note Date/Time of Note DATE: 01/06/19 TIME: 10:39 Delivery Summary 01/06/2019 Weeks of Gestation 38 weeks and 2 days Placenta Delivered: Spontaneously Meconium: Light Episiotomy: No Indication for episiotomy N/A Perineal laceration: 1 Laceration repair: first degree perineal laceration repaired using 3-0 chromic Anesthesia type: Epidural Estimated blood loss: 200 Sponge & Needle done & correct: Yes All needle counts correct: Yes Any foreign bodies felt in the: No Delivery Information Sex Sex: male Apgars 1 Minute: 8 5 Minute: 9 Suctioning Nose & mouth suctioned at tommy: Yes Delee suction performed: Yes Umbilical Cord Cord presentations: no nuchal cord Cord Blood was obtained: Yes Mother & Baby Disposition Disposition I was called for delivery due to significant urge to push Case was assigned to ca for delivery No complication After delivery of the head, first anterior shoulder and then post shoulder and the rest of the body delivered thin meconium noted Placenta delivered complete and spontanous. Fundus was firm at the end of the delivery and hemostasis was complete First degree perineal laceration at the fourchette noted and repaired using 3-0 chromic EBL: 200 cc CHUY MARQUES MD Jan 06, 2019 10:41
[2019-01-06] MEDS ORDERED: ACETAMINOPHEN 325 MG TAB PO PRN (11:30)
[2019-01-06] MEDS ORDERED: NACL 0.9% 3 ML SYG IV SCH (11:30)
[2019-01-06] MEDS ORDERED: WITCH HAZEL/GLYCERIN PAD PR PRN (11:30)
[2019-01-06] MEDS ORDERED: METOCLOPRAMIDE 10 MG TAB PO PRN (11:30)
[2019-01-06] MEDS ORDERED: DIPHENHYDRAMINE 25 MG CAP PO PRN (11:30)
[2019-01-06] MEDS ORDERED: ACET/BUTAL/CAFF TAB PO PRN (11:30)
[2019-01-06] MEDS ORDERED: LANOLIN HPA 1 PKT TOP PRN (11:30)
[2019-01-06] MEDS ORDERED: HYDROCODONE/APAP (5/325) TAB PO PRN (11:30)
[2019-01-06 12:20] VITALS: BP 117/74; PULSE 109; RESP 16
[2019-01-06] MEDS: SENNA/DOCUSATE NA (8.6MG/50MG) TAB PO SCH ×2 (12:38→21:15)
[2019-01-06 16:00] VITALS: BP 118/80; PULSE 100; RESP 18
[2019-01-06] MEDS: IBUPROFEN 600 MG TAB PO SCH (17:56)
[2019-01-06 20:15] VITALS: BP 108/74; PULSE 85; RESP 18
[2019-01-07] MEDS: IBUPROFEN 600 MG TAB PO SCH ×5 (00:11→23:52)
[2019-01-07] MEDS: LACTATED RINGER'S 1,000 ML IV SCH ×2 (02:25→10:25)
[2019-01-07 04:00] VITALS: BP 115/65; PULSE 84; RESP 17
[2019-01-07 07:40] VITALS: BP 123/81; PULSE 87; RESP 18
[2019-01-07] MEDS: SENNA/DOCUSATE NA (8.6MG/50MG) TAB PO SCH ×2 (09:37→21:42)
[2019-01-07 15:39] VITALS: BP 118/76; PULSE 100; RESP 18
--- NOTE | 2019-01-07 17:53 | PAC ---
Date/Time of Note Date/Time of Note DATE: 01/07/19 TIME: 17:53 Post-Anesthesia Notes Post-Anesthesia Note Last documented vital signs Vital Signs Date Temp Pulse Resp B/P (MAP) Pulse Ox O2 O2 Flow FiO2 Time Delivery Rate 01/07/19 98.0 100 18 118/76 Room Air 15:39 (90) Activity: WNL Respiratory function: WNL Cardiovascular function: WNL Mental status: Baseline Pain reasonably controlled: Yes Hydration appropriate: Yes Nausea/Vomiting absent: Yes ADAM WADE MD Jan 07, 2019 17:53
[2019-01-07 20:10] VITALS: BP 121/69; PULSE 100; RESP 17
--- NOTE | 2019-01-07 20:43 | DS ---
Date/Time of Note Date/Time of Note DATE: 01/07/19 TIME: 20:42 Obstetrical Discharge Record Final Diagnosis Final Diagnosis: Term delivered Vaginal Delivery Obstetrical Delivery: Spontaneous, Laceration, Repaired Condition on Discharge Physical Assessment Voiding: Yes Bowel Movement: Yes Breast: Soft, non-tender, Filling Fundus: Firm Abdomen and Incision: soft nt no distention Calf Tenderness: No Patient Condition: Fair DANDRE CAPONE MD Jan 07, 2019 20:43
--- NOTE | 2019-01-07 20:43 | PD.PPDC ---
RECEPTION MANAGER Discharge Instruction Condition [id number] Patient Condition: [id number] Fair Diet [id number] Diet: Afwoe0l Resume Regular Diet Activity/Restrictions Edmuc8Gm Activity: Qcrtq1m Normal Activity May Shower [id number] Restrictions: Giigu0a No Exercising No Lifting No Driving No Sexual Activity Nothing in the Vagina No [place] No Tampons, douche Wound/Drain Care Instructions [id number] Wound/Drain Care Instructions: [id number] Wash with soap and water Keep clean and dry Follow-up Follow-up with Physician: 3, Week/Weeks Return to clinic for Imani6Vp TREATMENT PLANT MECH[employer]IC Instructions: Ugqco6c Fever greater than 101 Chills Worsening abdominal pain Excessive Vaginal Bleeding More than 2 pads per hour Unable to tolerate diet [id number] OB Instructions: Bsdjt0u Breast Tenderness Depression Blurried Vision Headache Popfr9Ly Surgical Instructions: [id number] Incisional Drainage Incisional Redness DANDRE CAPONE MD Jan 07, 2019 20:43
[2019-01-08 04:00] VITALS: BP 126/80; RESP 18
[2019-01-08] MEDS: IBUPROFEN 600 MG TAB PO SCH (05:36)
[2019-01-08 07:50] VITALS: BP 122/76; PULSE 115; RESP 18
[2019-01-08] MEDS ORDERED: VARICELLA VACCINE LIVE/PF 1,350 UNIT/0.5 ML ML SC* ONE (09:00)
[2019-01-08] MEDS ORDERED: MEASLES,MUMPS,RUBELLA VACCINE INJ SC* ONE (09:00)
[2019-01-08] MEDS ORDERED: DIPHTH/TET/ACEL PERTUSS (ADULT) 0.5 ML VIAL IM* ONE (09:00)
[2019-01-08] MEDS: SENNA/DOCUSATE NA (8.6MG/50MG) TAB PO SCH (09:16)
[2019-01-09] MEDS ORDERED: IBUPROFEN 600 MG TAB PO SCH (06:00)
[2019-01-09] MEDS ORDERED: IBUPROFEN 600 MG TAB PO PRN (06:00)
== END 2019-01-08 11:55 | disposition home or self-care (01) | DRG 807 ==
LOC: OBT 01:46 → L-D 01:49 → OBT 02:24 → L-D 05:03 → PP1 10:43
PROVIDERS: ADMIT Obstetrics & Gynecology; ATTEND Obstetrics & Gynecology
PROC: 10E0XZZ Delivery of Products of Conception, External Approach (ICD-10-PCS; principal; 2019-01-06)
PROC: 0HQ9XZZ Repair Perineum Skin, External Approach (ICD-10-PCS; 2019-01-06)
DX: O99.344 Other mental disorders complicating childbirth (principal); Z37.0 Single live birth; F32.9 Major depressive disorder, single episode, unspecified; F41.9 Anxiety disorder, unspecified; O99.62 Diseases of the digestive system complicating childbirth; K21.9 Gastro-esophageal reflux disease without esophagitis; O77.0 Labor and delivery complicated by meconium in amniotic fluid; O70.0 First degree perineal laceration during delivery; Z3A.38 38 weeks gestation of pregnancy; Z86.32 Personal history of gestational diabetes; Z23 Encounter for immunization
CPT/HCPCS: 62319; 85014; 85018; 85025; 85610; 85730; 86592; 86850; 86900; 86901; 87340; 88307; 90686; 90715; 90716; 99464; G0463; J2590; J3010; J7120